=== PATIENT | male | born 1960 | race Caucasian/White ===

== ENCOUNTER → 2024-02-02 15:58 | Outpatient (REF) | payer BC, SELFPAY ==
[2024-02-02 16:46] LABS: Blood Urea Nitrogen 23 mg/dl (9-20); Calcium 8.3 mg/dl (8.4-10.2); Carbon Dioxide 20 mmol/L (22-30); Chloride 108 mmol/L (98-107); Glucose 144 mg/dl (70-99); HDL Cholesterol 32 mg/dl; LDL Cholesterol, Calculated 36 mg/dl; Potassium 4.4 mmol/L (3.5-5.1); Sodium 134 mmol/L (135-145); Total Cholesterol 101 mg/dl (50-199); Triglyceride 167 mg/dl (10-149); Very Low Density Lipoprotein 33 mg/dl (0-30); eGFR 56.13
[2024-02-03 08:54] LABS: Glycohemoglobin (HgbA1c) 6.7 % (4.0-5.6)
== END ==
LOC: OLABWPC 15:58
PROVIDERS: ATTENDING PHYSICIAN Internal Medicine Cardiovascular Disease; FAMILY PHYSICIAN Internal Medicine
DX: E11.9 Type 2 diabetes mellitus without complications (principal); I10 Essential (primary) hypertension; Z86.73 Personal history of transient ischemic attack (TIA), and cerebral infarction without residual deficits; E78.2 Mixed hyperlipidemia; E66.01 Morbid (severe) obesity due to excess calories
CPT/HCPCS: 36415; 80048; 80061; 83036

== ENCOUNTER → 2024-03-10 09:09 | Outpatient (REF) | payer MEDICARE, OTHER, SELFPAY | LOC: PAVMRI 09:09 | PROVIDERS: ATTENDING PHYSICIAN Anesthesiology Pain Medicine; FAMILY PHYSICIAN Internal Medicine | DX: M54.16 Radiculopathy, lumbar region (principal) | CPT/HCPCS: 70030; 72148 ==

== ENCOUNTER → 2024-03-27 10:15 | Outpatient (REF) | payer MEDICARE, OTHER, SELFPAY ==
[2024-03-27 10:52] LABS: % Basophils 0.5 % (0-2); % Eosinophils 2.9 % (0-6); % Immature Granulocytes 0.6 % (0-0.5); % Monocytes 10.5 % (1.7-9.3); % Neutrophils 64.5 % (42.2-75.2); Absolute Eosinophils 0.2 10^3/uL (0-0.7); Absolute Lymphocytes 1.4 10^3/uL (1.2-3.4); Absolute Monocytes 0.7 10^3/uL (0.1-0.6); Absolute Neutrophils 4.2 10^3/uL (1.4-6.5); Hematocrit 43.7 % (39.0-52.0); Hemoglobin 14.6 g/dL (13.0-18.0); Mean Corp Hgb Conc. 33.4 g/dL (33.0-37.0); Mean Corpuscular Hgb 32.7 pg (27.0-31.0); Mean Platelet Volume 9.4 fL (7.4-10.4); Nucleated Red Blood Cells % 0 % (-); Platelet Count 201 10^3/uL (130-400); Red Blood Cell Count 4.46 10^6/uL (4.70-6.10); Red Cell Dist. Width 13.6 % (11.5-14.5); White Blood Cell Count 6.6 10^3/uL (4.8-10.8)
[2024-03-27 11:38] LABS: ALT (SGPT) 36 U/L (0-50); AST (SGOT) 27 U/L (17-59); Albumin 3.7 g/dl (3.5-5.0); Alkaline Phosphatase 131 U/L (38-126); Blood Urea Nitrogen 22 mg/dl (9-20); Calcium 9.4 mg/dl (8.4-10.2); Carbon Dioxide 23 mmol/L (22-30); Chloride 106 mmol/L (98-107); Glucose 118 mg/dl (70-99); HDL Cholesterol 34 mg/dl; LDL Cholesterol, Calculated 21 mg/dl; Potassium 4.9 mmol/L (3.5-5.1); Sodium 136 mmol/L (135-145); Total Bilirubin 0.5 mg/dl (0.2-1.3); Total Cholesterol 101 mg/dl (50-199); Total Protein 6.2 g/dl (6.3-8.2); Triglyceride 233 mg/dl (10-149); Very Low Density Lipoprotein 46 mg/dl (0-30); eGFR > 60.00
[2024-03-27 12:05] LABS: TSH Reflex To Free T4 2.17 uIU/ml (0.47-4.68)
[2024-03-27 12:51] LABS: Glycohemoglobin (HgbA1c) 6.4 % (4.0-5.6)
== END ==
LOC: OLABWPC 10:15
PROVIDERS: ATTENDING PHYSICIAN Internal Medicine
DX: E11.9 Type 2 diabetes mellitus without complications (principal); I10 Essential (primary) hypertension; E66.01 Morbid (severe) obesity due to excess calories; E78.2 Mixed hyperlipidemia; I25.10 Atherosclerotic heart disease of native coronary artery without angina pectoris
CPT/HCPCS: 36415; 80053; 80061; 83036; 84443; 85025

== ENCOUNTER → 2024-08-11 09:39 | Outpatient (REF) | payer MEDICARE, OTHER, SELFPAY | LOC: RAD 09:39 | PROVIDERS: ATTENDING PHYSICIAN Nurse Practitioner Family | DX: M79.89 Other specified soft tissue disorders (principal); I87.2 Venous insufficiency (chronic) (peripheral) | CPT/HCPCS: 93971 ==

== ENCOUNTER → 2024-09-25 10:00 | Outpatient (REF) | payer MEDICARE, OTHER, SELFPAY ==
[2024-09-25 11:01] LABS: % Basophils 0.8 % (0-2); % Eosinophils 5.8 % (0-6); % Immature Granulocytes 0.4 % (0-0.5); % Lymphocytes 25.4 % (20.5-51.1); % Monocytes 10.7 % (1.7-9.3); % Neutrophils 56.9 % (42.2-75.2); Absolute Eosinophils 0.3 10^3/uL (0-0.7); Absolute Lymphocytes 1.4 10^3/uL (1.2-3.4); Absolute Monocytes 0.6 10^3/uL (0.1-0.6); Hematocrit 42.1 % (39.0-52.0); Hemoglobin 14.2 g/dL (13.0-18.0); Mean Corp Hgb Conc. 33.7 g/dL (33.0-37.0); Mean Corpuscular Hgb 33.6 pg (27.0-31.0); Mean Corpuscular Volume 99.8 fL (80.0-94.0); Mean Platelet Volume 9.8 fL (7.4-10.4); Nucleated Red Blood Cells % 0 % (-); Platelet Count 198 10^3/uL (130-400); Red Blood Cell Count 4.22 10^6/uL (4.70-6.10); Red Cell Dist. Width 13.4 % (11.5-14.5); White Blood Cell Count 5.3 10^3/uL (4.8-10.8)
[2024-09-25 11:54] LABS: TSH Reflex To Free T4 2.94 uIU/ml (0.47-4.68)
[2024-09-25 11:56] LABS: Glycohemoglobin (HgbA1c) 6.5 % (4.0-5.6)
[2024-09-25 11:57] LABS: HDL Cholesterol 33 mg/dl; LDL Cholesterol, Calculated 49 mg/dl; Total Cholesterol 115 mg/dl (50-199); Triglyceride 166 mg/dl (10-149); Very Low Density Lipoprotein 33 mg/dl (0-30)
== END ==
LOC: OLABWPC 10:00
PROVIDERS: ATTENDING PHYSICIAN Internal Medicine
DX: E11.9 Type 2 diabetes mellitus without complications (principal); I10 Essential (primary) hypertension; E66.01 Morbid (severe) obesity due to excess calories; E78.2 Mixed hyperlipidemia; I25.10 Atherosclerotic heart disease of native coronary artery without angina pectoris
CPT/HCPCS: 36415; 80061; 83036; 84443; 85025

== ENCOUNTER → 2025-03-23 09:40 | Outpatient (REF) | payer MEDICARE, OTHER, SELFPAY ==
[2025-03-23 11:08] LABS: % Basophils 0.9 % (0-2); % Eosinophils 3.6 % (0-6); % Immature Granulocytes 0.3 % (0-0.5); % Monocytes 9.1 % (1.7-9.3); % Neutrophils 66.1 % (42.2-75.2); Absolute Basophils 0.1 10^3/uL (0-0.2); Absolute Eosinophils 0.2 10^3/uL (0-0.7); Absolute Lymphocytes 1.2 10^3/uL (1.2-3.4); Absolute Monocytes 0.5 10^3/uL (0.1-0.6); Absolute Neutrophils 3.8 10^3/uL (1.4-6.5); Hematocrit 39.6 % (39.0-52.0); Hemoglobin 13.2 g/dL (13.0-18.0); Mean Corp Hgb Conc. 33.3 g/dL (33.0-37.0); Mean Corpuscular Hgb 32.8 pg (27.0-31.0); Mean Corpuscular Volume 98.3 fL (80.0-94.0); Mean Platelet Volume 10.1 fL (7.4-10.4); Nucleated Red Blood Cells % 0 % (-); Platelet Count 189 10^3/uL (130-400); Red Blood Cell Count 4.03 10^6/uL (4.70-6.10); Red Cell Dist. Width 13.2 % (11.5-14.5); White Blood Cell Count 5.8 10^3/uL (4.8-10.8)
[2025-03-23 11:56] LABS: Glycohemoglobin (HgbA1c) 6.2 % (4.0-5.6)
[2025-03-23 13:20] LABS: ALT (SGPT) 20 U/L (0-50); AST (SGOT) 21 U/L (17-59); Albumin 3.8 g/dl (3.5-5.0); Alkaline Phosphatase 97 U/L (38-126); Blood Urea Nitrogen 27 mg/dl (9-20); Carbon Dioxide 20 mmol/L (22-30); Chloride 106 mmol/L (98-107); Glucose 86 mg/dl (70-99); HDL Cholesterol 29 mg/dl; LDL Cholesterol, Calculated 53 mg/dl; Potassium 5.1 mmol/L (3.5-5.1); Sodium 136 mmol/L (135-145); Total Bilirubin 0.6 mg/dl (0.2-1.3); Total Cholesterol 116 mg/dl (50-199); Triglyceride 170 mg/dl (10-149); Very Low Density Lipoprotein 34 mg/dl (0-30); eGFR 51.35
== END ==
LOC: OLABWPC 09:40
PROVIDERS: ATTENDING PHYSICIAN Family Medicine
DX: E11.22 Type 2 diabetes mellitus with diabetic chronic kidney disease (principal); E78.2 Mixed hyperlipidemia; I10 Essential (primary) hypertension
CPT/HCPCS: 36415; 80053; 80061; 83036; 85025

== ENCOUNTER → 2025-07-13 10:39 | Outpatient (REF) | payer MEDICARE, OTHER, SELFPAY ==
[2025-07-13 10:58] LABS: Hematocrit 41.0 % (39.0-52.0); Hemoglobin 13.5 g/dL (13.0-18.0); Mean Corp Hgb Conc. 32.9 g/dL (33.0-37.0); Mean Corpuscular Volume 98.1 fL (80.0-94.0); Nucleated Red Blood Cells % 0 % (-); Platelet Count 202 10^3/uL (130-400); Red Cell Dist. Width 12.5 % (11.5-14.5)
[2025-07-13 11:20] LABS: ALT (SGPT) 19 U/L (0-50); AST (SGOT) 18 U/L (17-59); Albumin 3.9 g/dl (3.5-5.0); Alkaline Phosphatase 89 U/L (38-126); Blood Urea Nitrogen 36 mg/dl (9-20); Calcium 9.3 mg/dl (8.4-10.2); Carbon Dioxide 21 mmol/L (22-30); Chloride 108 mmol/L (98-107); Glucose 80 mg/dl (70-99); HDL Cholesterol 27 mg/dl; LDL Cholesterol, Calculated 16 mg/dl; Potassium 5.0 mmol/L (3.5-5.1); Sodium 136 mmol/L (135-145); Total Protein 6.1 g/dl (6.3-8.2); Very Low Density Lipoprotein 38 mg/dl (0-30); eGFR 44.18
[2025-07-13 11:44] LABS: Glycohemoglobin (HgbA1c) 5.8 % (4.0-5.6)
== END ==
LOC: OLABWPC 10:39
PROVIDERS: ATTENDING PHYSICIAN Family Medicine
DX: E78.2 Mixed hyperlipidemia (principal); E11.9 Type 2 diabetes mellitus without complications; I10 Essential (primary) hypertension
CPT/HCPCS: 36415; 80053; 80061; 83036; 85025

== ENCOUNTER 2025-08-11 11:07 | Inpatient (IN) | payer MEDICARE, OTHER, SELFPAY ==
[2025-08-11] VITALS (19 sets, daily range): BP systolic 103–160; BP diastolic 59–123; BMI 31.3
--- NOTE | 2025-08-11 08:14 | EDRN ---
Jerry MILLAN in room w/pt.
[2025-08-11 08:22] LABS: Hematocrit 44.0 % (39.0-52.0); Hemoglobin 14.3 g/dL (13.0-18.0); Mean Corp Hgb Conc. 32.5 g/dL (33.0-37.0); Mean Corpuscular Volume 97.3 fL (80.0-94.0); Nucleated Red Blood Cells % 0 % (-); Platelet Count 258 10^3/uL (130-400); Red Cell Dist. Width 12.2 % (11.5-14.5)
[2025-08-11] MEDS: NSS 1000 IV ×2 (08:22→10:05)
[2025-08-11] MEDS: ZOFRAN 4 MG IV (08:38)
[2025-08-11 08:47] LABS: Blood Urea Nitrogen 97 mg/dl (9-20); Calcium 10.0 mg/dl (8.4-10.2); Carbon Dioxide 7 mmol/L (22-30); Chloride 112 mmol/L (98-107); Estimated Creatinine Clearance 23 ml/min; Glucose 132 mg/dl (70-99); Lipase 950 U/L (23-300); Sodium 131 mmol/L (135-145); eGFR 17.38
[2025-08-11 08:54] LABS: Troponin I < 0.012 ng/ml
--- NOTE | 2025-08-11 09:00 | ED.GENMED ---
History of Present Illness
<Lori Benites PA-C - Last Filed: 08/11/25 13:59>
General
Chief Complaint: Abdominal Symptoms
Source: patient
Exam Limitations: none
Time Seen by Provider: 08/11/25 08:01
Nursing documentation reviewed up to this point in time: agreed with
History of Present Illness
History of Present Illness:
SEE mdm
Past History
<YAZAN Cardenas Last Filed: 08/11/25 13:59>
Past History
ED Past Medical History: CAD, HTN, Hypercholesterolemia and NIDDM
Social History
Tobacco: Non-smoker
Alcohol: None
Review of Systems
<YAZAN Cardenas Last Filed: 08/11/25 13:59>
Review of Systems
Allergies reviewed?: Yes
All Other Systems: Not applicable
Phy Exam
<Lori Benites PA-C - Last Filed: 08/11/25 13:59>
Physical Exam
Physical Exam:
GENERAL: Alert , in no apparent distress
EYE: pupils equal and reactive
NECK: Supple
ENT: o/p clr, VERY DRY
CARDIAC: Regular rate and rhythm .
LUNGS: Clear breath sounds bilaterally, no acute respiratory distress, no wheezes/rales/rhonchi
ABDOMEN: Soft, without focal tenderness, no r/g, no cvat, normal bowel sounds
NEUROLOGICAL: Alert and oriented, WEANKESS LLE, mild LUE
SKIN: Warm and dry, skin intact.
MUSCULOSKELETAL: No edema, well perfused. neg ricky's sign
PSYCH: Normal and appropriate interaction.
Course
<YAZAN Cardenas Last Filed: 08/11/25 13:59>
Orders/Labs/Results
Orders:
Orders
08/11/25 Breakfast
Potassium, 2 Gram
At Your Request: Full Participation
Low Potassium: 1800 scottie/15 CHO Diabetic
08/11/25 08:05
Electrocardiogram (*1) Urgent
Reason for Study: Chest Pain
Cardiac Monitoring- Treatment ONCE
EKG- Treatment ONCE
IV Insert/Care/Rem.- Treatment PRN
08/11/25 08:13
Basic Metabolic Panel Urgent
Complete Blood Count/With Diff Urgent
Lipase Urgent
Troponin I Urgent
08/11/25 08:19
0.9% Sodium Chloride 1000 ml [Nss] 1,000 ml IV BOLUS
Ondansetron Injectable [Zofran] 4 mg IV NOW STA
08/11/25 08:50
CT Abd/pel Without Iv Or Oral Urgent
Comment:
Reason For Exam: ARF, vomiting, diarrhea
08/11/25 09:01
Comprehensive Metabolic Panel Urgent
Venous Blood Gas Stat
%Oxygen/Room Air: 21
08/11/25 09:05
Lactic Acid Urgent
08/11/25 09:42
Calcium Gluconate 1 gram/100mL [Calcium Gluconate] 1 gram in 100 ml IV ONCE
08/11/25 09:43
Calcium Gluconate 1,000 mg IV NOW STA
08/11/25 09:56
US Abdomen Limited Urgent
Reason For Exam: vomiting, gallstones
08/11/25 10:05
0.9% Sodium Chloride 500 ml [Nss] 1,000 ml IV BOLUS
08/11/25 10:10
CR Chest Portable - 1 View Urgent
Comment:
Reason For Exam: achalasia,
Reason Study Needs to be Portable: Patient Unstable
08/11/25 10:12
Dextrose 50%-Water [Dextrose 50% Syringe] 12.5 grams IV [id number] PRN
Dextrose 50%-Water [Dextrose 50% Syringe] 25 grams IV NOW STA
Insulin Human Regular [Novolin R] 5 units IV NOW STA
Bedside Glucose PRE IV Insulin- HyperK+ NOW
08/11/25 10:13
Potassium Urgent
08/11/25 10:55
Admit/Transfer Patient As Directed
Co-Sign Provider:
Level of Care: Inpatient admission
Assign to:: ICU
Physician / Group: chu sexton
Diagnosis: Acute renal failure, hyperkalemia
Patient Condition: Fair
Reason for Hospitalization: Acute renal failure, hyperkalemia
Expected length of stay greater than two midnights?: Yes
ELOS- Estimated Length of Stay in days: 2
I certify the patient meets the requirements for IP care: Yes
Code Status As Directed
Resuscitation Status: Full Code
PRN Pain Medication Management As Directed
May give lesser potent ordered pain med per pt: Yes
preference::
Protocol:: Medication orders for pain may be administered in a
manner that supports deferring to patient preference
when the pt is:
- Requesting an ordered lesser potent pain medication.
Least to most potent pain medications are defined
as: acetaminophen < NSAID < tramadol < opioids
(morphine, oxycodone, hydromorphone).
- Requesting a lesser dose of the same medication IF
ORDERED.
- Requesting a less intrusive route of administration
if both routes are prescribed by the provider (PO <
IV).
08/11/25 11:42
Bedside Glucose POST IV Insulin- HyperK+ Q1HX2,Q2HX2
08/11/25 12:42
BMP [Basic Metabolic Panel] Routine
08/11/25 13:00
Bisacodyl [Dulcolax] 10 mg RECTAL [id number] PRN
Dextrose 50%-Water [Dextrose 50% Syringe] 12.5 grams IV [id number] PRN
Docusate W/Senna [Senokot-S] 1 tablet PO BIDPRN PRN
Glucagon [GlucaGen] 1 mg IM PRN PRN
Insulin Aspart Corrective Low [Novolog Flexpen-Low Resistance] See Protocol SC AC
Ipratropium/Albuterol Sulfate [Duoneb] 3 ml INH R Q4HPRN PRN
Ondansetron Injectable [Zofran] 4 mg IV Q6HPRN PRN
Polyethylene Glycol Powder [Miralax] 17 grams PO DAILYPRN PRN
08/11/25 13:00
NEPHROLOGY CONSULT Urgent
Consulting Provider: Devin Conde
Was physician already notified: Yes
Reason for consult: Acute renal failure, hyper-K
Urinalysis Reflex To Culture Urgent
Activity As Directed
Activity Level: With Assistance
Bedside Glucose Monitoring As Directed
Frequency: AC&HS
Additional Instructions:: Change to q6h if pt on TPN, tube feeding or not eating
Vital Signs As Directed
Frequency: Per unit guidelines
Ot Eval And Treat Routine
Pt Eval And Treat Routine
Activity Level: With Assistance
DX Deep Vein Thrombosis Video Routine
08/11/25 13:48
Acetaminophen [Tylenol] 650 mg PO Q4HPRN PRN
08/12/25 06:00
Basic Metabolic Panel IN AM
Complete Blood Count/No Diff IN AM
Glycohemoglobin (HgbA1c) IN AM
Magnesium IN AM
NT-proBNP IN AM
Abnormal Lab Results
08/11/25 08/11/25 08/11/25
08:13 09:01 10:13
RBC 4.52 L 10^6/uL
(4.70-6.10)
MCV 97.3 H fL
(80.0-94.0)
MCH 31.6 H pg
(27.0-31.0)
MCHC 32.5 L g/dL
(33.0-37.0)
Abs Immat Gran (auto) 0.1 H 10^3/uL
(0-0.05)
Absolute Neuts (auto) 8.5 H 10^3/uL
(1.4-6.5)
Absolute Lymphs (auto) 0.8 L 10^3/uL
(1.2-3.4)
Absolute Monos (auto) 1.1 H 10^3/uL
(0.1-0.6)
Neutrophils % 80.3 H %
(42.2-75.2)
Lymphocytes % 7.8 L %
(20.5-51.1)
Monocytes % 10.4 H %
(1.7-9.3)
VBG pH 7.12 L*
(7.32-7.43)
VBG HCO3 12.7 L mmol/L
(27)
Sodium 131 L mmol/L 132 L mmol/L
(135-145) (135-145)
Potassium 8.1 H* mmol/L 7.7 H* mmol/L
(3.5-5.1) (3.5-5.1)
Chloride 112 H mmol/L 113 H mmol/L
(98-107) (98-107)
Carbon Dioxide 7 L* mmol/L 9 L* mmol/L
(22-30) (22-30)
BUN 97 H mg/dl 94 H mg/dl
(9-20) (9-20)
Creatinine 3.7 H mg/dL 3.6 H mg/dL
(0.7-1.3) (0.7-1.3)
Glucose 132 H mg/dl 116 H mg/dl
(70-99) (70-99)
Lipase 950 H U/L
(23-300)
08/11/25 08:13
08/11/25 10:13
Vital Signs
Initial and Last Documented VS:
Initial Vital Signs
Pulse Resp BP
75 23 136/82
08/11/25 07:58 08/11/25 07:58 08/11/25 07:58
Last Documented Vital Signs
Temp Pulse Resp BP Pulse Ox
37.0 C 65 20 122/59 99
08/11/25 07:59 08/11/25 13:45 08/11/25 13:45 08/11/25 13:30 08/11/25 13:45
<Thao Kirby DO - Last Filed: 08/11/25 10:15>
Orders/Labs/Results
Orders:
Orders
08/11/25 Breakfast
Potassium, 2 Gram
At Your Request: Full Participation
Low Potassium: 1800 scottie/15 CHO Diabetic
08/11/25 08:05
Electrocardiogram (*1) Urgent
Reason for Study: Chest Pain
Cardiac Monitoring- Treatment ONCE
EKG- Treatment ONCE
IV Insert/Care/Rem.- Treatment PRN
08/11/25 08:13
Basic Metabolic Panel Urgent
Complete Blood Count/With Diff Urgent
Lipase Urgent
Troponin I Urgent
08/11/25 08:19
0.9% Sodium Chloride 1000 ml [Nss] 1,000 ml IV BOLUS
Ondansetron Injectable [Zofran] 4 mg IV NOW STA
08/11/25 08:50
CT Abd/pel Without Iv Or Oral Urgent
Comment:
Reason For Exam: ARF, vomiting, diarrhea
08/11/25 09:01
Comprehensive Metabolic Panel Urgent
Venous Blood Gas Stat
%Oxygen/Room Air: 21
08/11/25 09:05
Lactic Acid Urgent
08/11/25 09:42
Calcium Gluconate 1 gram/100mL [Calcium Gluconate] 1 gram in 100 ml IV ONCE
08/11/25 09:43
Calcium Gluconate 1,000 mg IV NOW STA
08/11/25 09:56
US Abdomen Limited Urgent
Reason For Exam: vomiting, gallstones
08/11/25 10:05
0.9% Sodium Chloride 500 ml [Nss] 1,000 ml IV BOLUS
08/11/25 10:10
CR Chest Portable - 1 View Urgent
Comment:
Reason For Exam: achalasia,
Reason Study Needs to be Portable: Patient Unstable
08/11/25 10:12
Dextrose 50%-Water [Dextrose 50% Syringe] 12.5 grams IV [id number] PRN
Dextrose 50%-Water [Dextrose 50% Syringe] 25 grams IV NOW STA
Insulin Human Regular [Novolin R] 5 units IV NOW STA
Bedside Glucose PRE IV Insulin- HyperK+ NOW
08/11/25 10:13
Potassium Urgent
08/11/25 10:55
Admit/Transfer Patient As Directed
Co-Sign Provider:
Level of Care: Inpatient admission
Assign to:: ICU
Physician / Group: chu sexton
Diagnosis: Acute renal failure, hyperkalemia
Patient Condition: Fair
Reason for Hospitalization: Acute renal failure, hyperkalemia
Expected length of stay greater than two midnights?: Yes
ELOS- Estimated Length of Stay in days: 2
I certify the patient meets the requirements for IP care: Yes
Code Status As Directed
Resuscitation Status: Full Code
PRN Pain Medication Management As Directed
May give lesser potent ordered pain med per pt: Yes
preference::
Protocol:: Medication orders for pain may be administered in a
manner that supports deferring to patient preference
when the pt is:
- Requesting an ordered lesser potent pain medication.
Least to most potent pain medications are defined
as: acetaminophen < NSAID < tramadol < opioids
(morphine, oxycodone, hydromorphone).
- Requesting a lesser dose of the same medication IF
ORDERED.
- Requesting a less intrusive route of administration
if both routes are prescribed by the provider (PO <
IV).
08/11/25 11:42
Bedside Glucose POST IV Insulin- HyperK+ Q1HX2,Q2HX2
08/11/25 12:42
BMP [Basic Metabolic Panel] Routine
08/11/25 13:00
Bisacodyl [Dulcolax] 10 mg RECTAL [id number] PRN
Dextrose 50%-Water [Dextrose 50% Syringe] 12.5 grams IV [id number] PRN
Docusate W/Senna [Senokot-S] 1 tablet PO BIDPRN PRN
Glucagon [GlucaGen] 1 mg IM PRN PRN
Insulin Aspart Corrective Low [Novolog Flexpen-Low Resistance] See Protocol SC AC
Ipratropium/Albuterol Sulfate [Duoneb] 3 ml INH R Q4HPRN PRN
Ondansetron Injectable [Zofran] 4 mg IV Q6HPRN PRN
Polyethylene Glycol Powder [Miralax] 17 grams PO DAILYPRN PRN
08/11/25 13:00
NEPHROLOGY CONSULT Urgent
Consulting Provider: Devin Conde
Was physician already notified: Yes
Reason for consult: Acute renal failure, hyper-K
Urinalysis Reflex To Culture Urgent
Activity As Directed
Activity Level: With Assistance
Bedside Glucose Monitoring As Directed
Frequency: AC&HS
Additional Instructions:: Change to q6h if pt on TPN, tube feeding or not eating
Vital Signs As Directed
Frequency: Per unit guidelines
Ot Eval And Treat Routine
Pt Eval And Treat Routine
Activity Level: With Assistance
DX Deep Vein Thrombosis Video Routine
08/11/25 13:48
Acetaminophen [Tylenol] 650 mg PO Q4HPRN PRN
08/12/25 06:00
Basic Metabolic Panel IN AM
Complete Blood Count/No Diff IN AM
Glycohemoglobin (HgbA1c) IN AM
Magnesium IN AM
NT-proBNP IN AM
Abnormal Lab Results
08/11/25 08/11/25 08/11/25
08:13 09:01 10:13
RBC 4.52 L 10^6/uL
(4.70-6.10)
MCV 97.3 H fL
(80.0-94.0)
MCH 31.6 H pg
(27.0-31.0)
MCHC 32.5 L g/dL
(33.0-37.0)
Abs Immat Gran (auto) 0.1 H 10^3/uL
(0-0.05)
Absolute Neuts (auto) 8.5 H 10^3/uL
(1.4-6.5)
Absolute Lymphs (auto) 0.8 L 10^3/uL
(1.2-3.4)
Absolute Monos (auto) 1.1 H 10^3/uL
(0.1-0.6)
Neutrophils % 80.3 H %
(42.2-75.2)
Lymphocytes % 7.8 L %
(20.5-51.1)
Monocytes % 10.4 H %
(1.7-9.3)
VBG pH 7.12 L*
(7.32-7.43)
VBG HCO3 12.7 L mmol/L
(22-27)
Sodium 131 L mmol/L 132 L mmol/L
(135-145) (135-145)
Potassium 8.1 H* mmol/L 7.7 H* mmol/L
(3.5-5.1) (3.5-5.1)
Chloride 112 H mmol/L 113 H mmol/L
(98-107) (98-107)
Carbon Dioxide 7 L* mmol/L 9 L* mmol/L
(22-30) (22-30)
BUN 97 H mg/dl 94 H mg/dl
(9-20) (9-20)
Creatinine 3.7 H mg/dL 3.6 H mg/dL
(0.7-1.3) (0.7-1.3)
Glucose 132 H mg/dl 116 H mg/dl
(70-99) (70-99)
Lipase 950 H U/L
(23-300)
08/11/25 08:13
08/11/25 10:13
Vital Signs
Initial and Last Documented VS:
Initial Vital Signs
Pulse Resp BP
75 23 136/82
08/11/25 07:58 08/11/25 07:58 08/11/25 07:58
Last Documented Vital Signs
Temp Pulse Resp BP Pulse Ox
37.0 C 65 20 122/59 99
08/11/25 07:59 08/11/25 13:45 08/11/25 13:45 08/11/25 13:30 08/11/25 13:45
<Lori Benites PA-C - Last Filed: 08/11/25 13:59>
MDM/Problems Addressed
Differential Diagnosis Includes:
SEE mdm
MDM/Problems Addressed:
Note:
CHIEF COMPLAINT(S)
Nausea, vomiting, and diarrhea for the past three weeks following a recent vaccination.
HISTORY OF PRESENT ILLNESS
The patient is a 64-year-old male with a history of stroke and diabetes, who presents with nausea, vomiting, and diarrhea that began three weeks ago after receiving a Moderna vaccination. He reports having little to eat or drink during this period
but has attempted to consume small amounts of Gatorade. He describes a greater volume of diarrhea compared to vomiting and denies the presence of abdominal pain. The patient mentions experiencing dizziness but does not report any fever. A history of
a past stroke and a previous esophageal procedure related to achalasia was noted. The patient is on medications for diabetes, including metformin.
PAST MEDICAL AND SURIGICAL HISTORY
- Stroke several years ago.
- Achalasia with prior esophageal dilation.
CHRONIC MEDICAL CONDITIONS SIGNIFICANTLY AFFECTING CARE
- Diabetes.
- History of achalasia.
- Cerebrovascular accident (stroke).
MEDICATIONS
- Metformin (for diabetes).
REVIEW OF SYSTEMS
- Gastrointestinal: Frequent diarrhea more prominent than vomiting.
- General: Dizziness present, but no reported fever.
PHYSICAL EXAM
- Vital signs reviewed on nursing notes.
PROBLEM LIST
Acute:
- Nausea, vomiting, and diarrhea post-vaccination.
- Dizziness possibly related to dehydration or other causes.
Chronic:
- Diabetes mellitus.
- History of esophageal achalasia.
- History of stroke.
PLAN
The patient will undergo a computed tomography scan and blood work. Intravenous fluids will be administered for hydration. Antiemetic medication will be given to manage nausea and vomiting. Differential diagnosis considerations include pancreatitis,
bowel obstruction, or other gastrointestinal pathology.
DIFFERENTIAL DIAGNOSIS
The Differential Diagnosis includes, in no particular order and is not limited to:
1. Viral gastroenteritis.
2. Medication side effects.
3. Pancreatitis.
4. Small bowel obstruction.
5. Large bowel obstruction.
6. Gastritis.
7. Peptic ulcer disease.
8. Diabetic gastroparesis.
9. Esophageal motility disorder.
10. Hypoglycemia secondary to diabetes treatment.
64 Y/O M
N/V/D X 3 WEEKS
STABLE VITALS
DRY
NONTENDER ABDOMEN
ARF, METABOLIC ACIDOSIS, HYPERKALEMIA
CT NO OBSTRUCTIVE UROPATHY
SUSPECT GI LOSSES/PRERENAL CAUSES
WILL TREAT THE HYPERK
ADMIT TO HOSPITALIST, CONSULTED NEPHROLOGY
Disposition:
SUMMARY OF ENCOUNTER
The patient, a 64-year-old male from a longterm, presented with three weeks of nausea, vomiting, and diarrhea following a Manjaro injection. He has experienced inconsistent tolerance of liquids and persistent vomiting with food. He reports no
significant abdominal pain but does experience confusion. On examination, vital signs were stable, the abdomen was soft and non-tender, but the mucous membranes were moderately dry. Laboratory results indicated severe electrolyte imbalances with
hyperkalemia, acute renal failure, and metabolic acidosis. A venous pH of 7.1 and a bicarbonate level of [address] scan without contrast ruled out obstructive uropathy as a cause for renal failure, pointing instead towards a pre-renal
etiology. The CT also revealed a distended gallbladder with stones, prompting the ordering of an ultrasound to evaluate for possible cholecystitis or cholelithiasis. Given the suspicion of hyperkalemia due to potential hemolysis, calcium, insulin,
and dextrose were administered.
DISPOSITION
Admitted to hospitalist, likely intensive care.
ASSESSMENT
The patient presents with acute renal failure likely of pre-renal origin, metabolic acidosis, and possible gallbladder pathology, all potentially connected with recent Manjaro injection.
EMERGENCY TREATMENTS ADMINISTERED
Intravenous fluids, calcium, insulin, and dextrose.
INDEPENDENT REVIEW OF LABS AND INTERPRETATION OF TESTS
- My independent review of electrolytes indicates hyperkalemia and metabolic acidosis with an anion gap of 12.
- My independent review of a venous blood gas shows a pH of 7.1 and a bicarbonate level of 7.
Radiology Results:
- My independent interpretation of the non-contrasted CT scan shows no obstructive uropathy but identifies a distended gallbladder with stones.
PATIENT EDUCATION AND COUNSELING
The patient was informed about the potential link between their symptoms and the recent Manjaro injection. An explanation was given about possible gallbladder issues and the need for further imaging and treatment.
FOLLOW-UP INSTRUCTIONS
The patient will be monitored closely under hospital admission with the likelihood of intensive care involvement.
MEDICATION RECONCILIATION
Administered calcium, insulin, and dextrose for treatment of hyperkalemia.
MEDICAL DECISION MAKING
- Number and Complexity of Problems Addressed: Chronic conditions affecting care include history of stroke, diabetes, and prior esophageal dilation. Differential diagnosis includes causes of renal failure and gastrointestinal symptoms such as viral
gastroenteritis, pancreatitis, bowel obstruction, gastritis, esophageal motility disorder, and diabetic gastroparesis.
- Data:
Category 1
- I reviewed the patients non-emergency department records, including a review of current laboratory results.
- My independent interpretation of a non-contrasted CT scan and clinical evaluation led to the decision to order an ultrasound for further assessment.
Category 3
- Discussion of management with attending and hospitalist regarding the patients condition and need for admission, likely intensive care.
-Risk:
Consideration of Admission/Observation: Escalation of care including admission/observation was considered given the complexity and risk of the patients presenting complaint, exam findings, and their underlying comorbidities. However, ultimately, I
feel the patient is safe for inpatient management with close monitoring. Reasoning: The work-up does not reveal any acute life/organ-threatening processes presently.
DIAGNOSIS
- Acute renal failure, likely pre-renal (N17.9)
- Metabolic acidosis (E87.2)
- Hyperkalemia (E87.5)
- Cholelithiasis (K80.20)
<Lori Benites PA-C - Last Filed: 08/11/25 13:59>
*Pulse Oximetry
SaO2: 96
Oxygen Mode of Delivery: Room air
Patient hypoxic: no (99)
<Thao Kirby DO - Last Filed: 08/11/25 10:15>
*Critical Care Note
Total Time (30-74mins, 75-104mins- exclusive of procedures): 65
comment:
The high probability of a clinically significant, sudden or life threatening deterioration of the renal and cardiac system(s) required my full and direct attention, intervention and personal management. The aggregate critical care time was 65
minutes. This time is in addition to time spent performing reported procedures but includes the following:
[x] Data Review and interpretation
[x] Patient assessment and monitoring of vital signs
[x] Documentation
[x] Medication orders and management
ED Attending Note
<Lori Benites PA-C - Last Filed: 08/11/25 13:59>
-
Portions of this chart may have been created with voice recognition software.� Occasional wrong word or��sound alike� substitutions may have occurred due to the inherent limitations of voice recognition software.
<Thao Kirby DO - Last Filed: 08/11/25 10:15>
ED Attending Note
Patient seen and examined by attending physician: Yes
I performed the substantive portion of visit, reviewed & personally made and approve the management plan that is documented in note by myself or AIDE.: Yes
I performed a history and physical exam of patient and discussed management with resident, I reviewed resident's note and agree with documented findings and plan of care.: Yes
ED Attending Note:
64-year-old male presenting from nursing facility for concern of confusion with nausea/vomiting/diarrhea for the past 3 weeks. Patient recently started on Mounjaro. Patient on arrival notes that he has been to tolerate anything by mouth secondary
to patient, also has baseline achalasia. No report of any fevers. Denies chest pain, cough, difficulty breathing. Patient's brother is at bedside.
Vital signs on arrival significant for mild tachypnea. Patient initially seen and evaluated by physician assistant family teacher with appropriate workup for concern of dehydration, likely medication induced from Mounjaro. On my examination, patient with dry
mucous membranes, however no focal systemic symptoms. Patient with unremarkable cardiac and respiratory exam. No tenderness to the abdomen. Laboratory analysis is grossly abnormal with a metabolic acidosis. Glucose is within normal limits
without concern for DKA. Lactate is within normal limits without concern for lactic acidosis. Profound [place], acidosis possibly from uremia. Patient getting IV fluids. Potassium also returned markedly elevated. Possible lab error, however given
value, will treat with calcium/dextrose/insulin. Will recheck potassium. Patient notes that he also takes potassium supplementation at baseline. No significant EKG changes. CT abdomen and pelvis obtained to ensure no acute intra-abdominal
process to contribute to patient's symptoms, negative. Plan for admission for dehydration, uremia, [place], hyperkalemia
Discharge Plan
Departure
Patient Disposition: Admit
Date of Disposition: 08/11/25
Time of Disposition: 09:56
Admit to: IMU
Presentation/result/management discussed w/ accepting MD/DO: Hospitalist
Condition: Fair
Covid-19: Not Applicable
Discharge Problem:
Acute renal failure, Dehydration, Vomiting, Hyperkalemia, Metabolic acidosis
Interventions
Interventions:
*Risk Screen - Suicide Last Done: 08/11/25 07:59
*General Assessment Last Done: 08/11/25 07:59
*Neglect/Abuse Screening Last Done: 08/11/25 07:59
*ED- Fall Risk Assessment Last Done: 08/11/25 08:48
*ED COVID-19 Vaccine History Last Done: 08/11/25 07:59
*Nursing Disposition Last Done: 08/11/25 12:50
HI-Pyytnm-Askjlhxrao Assessment Last Done: 08/11/25 08:45
Discharge Date and Time
Discharge Date/Time: 08/11/25 12:50
--- NOTE | 2025-08-11 09:08 | EDRN ---
James MILLAN in room w/ pt at this time.
--- NOTE | 2025-08-11 09:09 | EDRN ---
Chemistry tube hemolyzed so was reordered w/ VBG and Lactic ordered as well. Labs drawn and sent to lab. Lab called that VBG drawn and sent.
[2025-08-11 09:17] LABS: Venous Blood Gas B.E. -16.0 mmol/L (-4 to +4); Venous Blood Gas O2 Sat % 74.9 %
[2025-08-11 09:20] LABS: Venous Blood Gas O2 Therapy 21
[2025-08-11 09:41] LABS: ALT (SGPT) 17 U/L (0-50); AST (SGOT) 21 U/L (17-59); Albumin 3.9 g/dl (3.5-5.0); Alkaline Phosphatase 112 U/L (38-126); Blood Urea Nitrogen 94 mg/dl (9-20); Calcium 9.7 mg/dl (8.4-10.2); Carbon Dioxide 9 mmol/L (22-30); Chloride 113 mmol/L (98-107); Estimated Creatinine Clearance 23 ml/min; Glucose 116 mg/dl (70-99); Potassium 8.1 mmol/L (3.5-5.1); Sodium 132 mmol/L (135-145); Total Protein 6.7 g/dl (6.3-8.2); eGFR 17.96
--- NOTE | 2025-08-11 09:42 | EDRN ---
Pt attempted to void but was unable.
--- NOTE | 2025-08-11 09:57 | EDRN ---
Dr. Kirby in room w/ pt at this time.
[2025-08-11] MEDS: CALCIUM GLUCONATE 1000 MG IV (09:59)
[2025-08-11 10:31] LABS: Potassium 7.7 mmol/L (3.5-5.1)
--- NOTE | 2025-08-11 10:32 | EDRN ---
Portable xray being done at stretcher side.
[2025-08-11] MEDS: NOVOLIN R 5 UNITS IV ×2 (10:40→17:11)
[2025-08-11] MEDS: DEXTROSE 50% SYRINGE 25 GRAMS IV ×2 (10:40→17:11)
--- NOTE | 2025-08-11 10:40 | EDRN ---
Hospitalist Dr. Bro in room w/ pt at this time.
--- NOTE | 2025-08-11 11:01 | HPS.HSE ---
Family Physician
-
Family Physician: Tara French MD
Chief Complaint
-
Nausea, vomiting, diarrhea
History of Present Illness
Patient is 64 years old with a history of ksj-tteffga-zzrdjwfcj diabetes mellitus, CVA, osteoarthritis, sleep apnea, squamous cell carcinoma hypertension, hyperlipidemia, depression who came to the ER today with persistent nausea, vomiting, diarrhea
for last 3 weeks after receiving Mounjaro injection.
Patient received a Mounjaro injection 3 weeks ago and afterward he was experience daily nausea, vomiting, diarrhea.
Patient denies any chest pain or shortness of breath, denies any abdominal pain, no recent fever or chills.
Upon presentation to the ER patient noted to have acute renal failure with significant acidosis, also potassium level was 8.1, repeat potassium 7.7.
Patient received dextrose/insulin, repeat potassium pending.
Patient will be admitted to the ICU
Medical History
Past Medical History
Past Medical History: Reports HTN, Hypercholesterolemia, NIDDM and Other
Additional Past Medical History:
Diagnosis Date Comment Source
Aplasia and hypoplasia of cementum
Arthritis lower back
Cataract
[place] [place]di[place] [place]
High cholesterol
HTN (hypertension)
Osteoarthritis Hip
Retinal detachment left surgery x 6 / Rt right �laser retinopexy
SCCA (squamous cell carcinoma) of skin scalp and face
Seasonal allergies
Sleep apnea uses CPAP
Past Surgical History: Reports Other
Additional Past Surgical History:
Procedure Laterality Date Comment Source
ESOPHAGUS SURGERY PROCEDURE dilation of �sphincter
HX VITRECTOMY multiple rd �sx x 6
TN TRABECULOPLASTY BY LASER SURGERY PRP and laser retinopexy
TN XCAPSL CTRC RMVL INSJ IO LENS PROSTH CPLX WO ECP Left left 2015
TN XCAPSL CTRC RMVL INSJ IO LENS PROSTH W/O ECP Right 11/18/2023 Procedure: CATARACT REMOVAL INSERTION OF LENS; �Surgeon: Yvonne Leonardo MD; �Location: [facility] OR; �Service: OPHTHAL
TOTAL HIP REPLACEMENT Right 04/21/2022 Procedure: TOTAL HIP ARTHROPLASTY; ACETABULAR AND PROXIMAL FEMORAL PROSTHETIC; �Surgeon: Xu Chand MD; �Location: [facility] OR; �Service: ORTHO
Social History
Tobacco: Non-smoker
Alcohol: None
Drug: None
Personal:
Living: Assisted Living
Family History
Family History: Not pertinent
Allergies / Home Medications
Allergies reflects when Allergies were last updated in [facility].
Home Medications with original date entered in [facility]
Allergy/Medication List:
Allergies
Allergy/AdvReac Type Severity Reaction Status Date / Time
lactose Allergy Unknown Verified 08/11/25 11:15
pollen extracts Allergy nasal Verified 08/11/25 07:58
symptoms
Current outpatient prescriptions:
1) Atenolol 50 mg tablet, take 1 tablet by mouth daily.
2) Atorvastatin 40 mg tablet, take 1 tablet by mouth daily at bedtime.
3) Ciclopirox 8 % solution,
4) Clopidogrel 75 mg tablet, take 1 tablet by mouth daily.
5) Docusate sodium 100 mg capsule, take 1 capsule by mouth 2 times a day.
6) Dropsafe safety pen needles 31g x 5 mm,
7) Empagliflozin (jardiance po), take by mouth daily.
8) Fluoxetine 20 mg capsule, take 1 capsule by mouth daily.
9) Fluticasone 50 mcg/act nasal spray,
10) Hydralazine 100 mg tablet, take 1 tablet by mouth 2 times a day.
11) Losartan 100 mg tablet,
12) Metformin 500 mg tablet, take 1 tablet by mouth daily with breakfast.
13) Methocarbamol 500 mg tablet,
14) Novolog flexpen 100 unit/ml subcutaneous solution pen-injector,
15) [place]-3 acid ethyl esters 1 g capsule,
16) Onetouch ultra 2 w/device kit, use to check blood sugars twice daily as directed
17) Quickcue in vitro strip, use strips to check glucose twice daily
18) Potassium chloride 20 meq er tablet, take 1 tablet by mouth daily.
19) Spironolactone 50 mg tablet, take 1 tablet by mouth 2 times a day.
20) Tizanidine 4 mg tablet,
21) Tramadol 50 mg tablet, take 1 tablet by mouth.
Review of Systems
-
A 12 point ROS was completed and negative except as noted: Yes
Constitutional: Reports Weight Loss and Fatigue; Denies Fever, Weight Gain or Sleep Disturbance
EENT: Denies Tearing, Sore Throat, Mouth Pain, Mouth Swelling or Runny Nose
Respiratory: Denies Cough, Hemoptysis or Trouble Breathing
Cardiac: Denies Chest Pain, Diaphoresis, Palpitations or Syncope
Abdomen/GI: Reports Nausea, Vomiting and Diarrhea; Denies Abdominal Pain, Constipated, Bloody Stools or Black Stools
: Denies Dysuria, Frequency, Flank Pain, Incontinence, Difficulty Voiding, Urgency, Bleeding or Dark Urine
Musculoskeletal: Denies Joint Pain, Joint Swelling, Muscle Pain, Muscle Stiffness or Edema
Skin: Denies Itching or Rash
Neurological: Denies Dizzy, Headache, Weakness or Numbness
Endocrine: Denies Polyuria, Polydipsia or Temp Intolerance
Hematologic/Lymphatic: Denies Bleeding, Swollen Glands or Bruising
Psych: Reports Calm; Denies Depression, Anxiety or Panic Disorder
Physical Exam
Vital Signs
Vital Signs
Temp Pulse Resp BP Pulse Ox
98.6 F 67 26 143/103 96
08/11/25 07:59 08/11/25 09:00 08/11/25 09:00 08/11/25 09:00 08/11/25 09:02
Physical Exam
General: Well Developed, Appears in Distress and Good Appetite; No Pain, Chills or Sweats
HEENT: NormoCephalic, Moist mucous membranes, Atraumatic, Good Dentition, PERRLA, Nose Appears Normal and Ears Appear Normal
Respiratory: Clear
Cardiac: S1/S2 and Regular Rhythm
Breast: Deferred by me
GI: Soft, Non Tender, Non Distended and Normal Bowel Sounds
Genito-urinary: Deferred by me
Musculoskeletal: No Clubbing, No Cyanosis, Edema, Left Lower Extremity and Edema, Right Lower Extremity
Skin: Warm; No Rash, Jaundice, Ulcers, Lesions or Decubitus Ulcers
Neuro: Awake, Alert, Oriented, AO x 3, No Motor Deficits, Nonfocal/grossly intact and Cranial Nerves Intact
Hematologic/Lymphatic: No Lymphadenopathy
Psych: Calm
Laboratory Results
-
08/11/25 08:13
Laboratory Results
Lactic Acid 0.9 mmol/L (0.7-2.0) 08/11/25 09:05
Total Bilirubin 0.7 mg/dl (0.2-1.3) 08/11/25 09:01
AST 21 U/L (17-59) 08/11/25 09:01
ALT 17 U/L (0-50) 08/11/25 09:01
Alkaline Phosphatase 112 U/L (38-126) 08/11/25 09:01
Troponin I < 0.012 ng/ml 08/11/25 08:13
Lipase 950 U/L (23-300) H 08/11/25 08:13
Data Reviewed
-
Diagnostic Radiology: Report Reviewed by me
CT Scan: Report Reviewed by me
Medical Tests (Nuc Med, Echo, EKG etc): Report Reviewed by me
Lab Data: Labs Reviewed by me
Old Records: Reviewed
Impression/Plan
-
Impression:
Patient is 64 years old with a history of qwz-anvfnya-bsnvbbscd diabetes mellitus, CVA, osteoarthritis, sleep apnea, squamous cell carcinoma hypertension, hyperlipidemia, depression who came to the ER today with persistent nausea, vomiting, diarrhea
for last 3 weeks after receiving Mounjaro injection.
Patient received a Mounjaro injection 3 weeks ago and afterward he was experience daily nausea, vomiting, diarrhea.
Patient denies any chest pain or shortness of breath, denies any abdominal pain, no recent fever or chills.
Upon presentation to the ER patient noted to have acute renal failure with significant acidosis, also potassium level was 8.1, repeat potassium 7.7.
Patient received dextrose/insulin, repeat potassium pending.
Patient will be admitted to the ICU.
Assessment/plan:
Acute renal failure.
Severe hyperkalemia.
Acute metabolic acidosis.
Patient presented with 3 weeks history of nausea/vomiting/diarrhea after receiving Mounjaro.
Possible renal failure is prerenal azotemia secondary to volume depletion.
Obtain urinalysis
Patient will be admitted to the ICU.
Status post insulin/dextrose in the ER.
Start bicarb drip.
Repeat BMP.
Corporate Recruiter/nephrology consult.
If hyperkalemia/acidosis refractory patient may need dialysis, discussed with family.
Significant hyperkalemia.
Secondary to renal failure.
EKG shows no peaked T waves
Treatment as above
Patient on losartan/potassium supplements/spironolactone at home.Will hold
Low potassium diet.
Acute metabolic encephalopathy.
Improving
Pancreatitis, elevated lipase.
No abdominal pain
No tenderness on physical
Continue IV fluid
Concern of borderline prominent gallbladder seen on CT scan
Ultrasound abdomen pending
Again patient denies abdominal pain and there is no tenderness on physical exam.
History of hypertension.
Hold Losartan/spironolactone
Continue with atenolol/hydralazine once home meds are verified
History of diabetes mellitus
Hold home meds for now
Insulin sliding scale
Diabetic diet
Hemoglobin A1c
History of CVA.
Continue atorvastatin/Plavix
Hyperlipidemia.
Continue statin
Osteoarthritis.
Continue tramadol
CODE STATUS: Full code
DVT prophylaxis: Heparin
Diet: low K / diabetic diet
Family communication: Discussed with at bedside, brother
Disposition: Admit to the ICU
Total time spent on today's encounter was 75 minutes which included time spent in counseling the patient/family regarding diagnosis and treatment plan as listed above, goals of care, and symptom management. Case was discussed with nursing staff,
specialists, and care coordinators/case management. All labs and imaging personally reviewed by me. Remainder the time spent in detailed review of previous records, lab data, imaging, and other medical provider documentation.
[2025-08-11 11:33] LABS: Glucose - Point of Care 122 mg/dl (70-99)
[2025-08-11] MEDS: SODIUM BICARBONATE 1150 MEQ IV ×2 (11:38→20:17)
--- NOTE | 2025-08-11 12:36 | EDRN ---
Report called to Rachel HOLLOWAY in ICU at this time.
[2025-08-11 12:44] LABS: Glucose - Point of Care 101 mg/dl (70-99)
--- NOTE | 2025-08-11 13:12 | CON.INTV ---
Consultation
Consultation Request
Date/Time Consultation Requested: 08/11/2025
Date/Time Consultation Performed: 08/11/2025
Medical History
-
Chief Complaint: Nausea, vomiting and diarrhea
History of Present Illness:
Patient is a 63-year-old gentleman with history of diabetes, prior history of CVA who presented to emergency room for ongoing nausea, vomiting, diarrhea ongoing for almost 3 weeks after receiving Mounjaro and injection. Workup in the emergency room
was suggestive of acute renal failure along with severe hyperkalemia. Patient received urgent treatment with dextrose, insulin and bicarb and repeat potassium was marginally improved at 7.7. Subsequently was admitted to ICU and formal wear rental clerk
consultation was requested for further input.
Patient had a CT abdomen pelvis performed which is not suggestive of any obstructive uropathy.
Past Medical History
Past Medical History: Reports HTN, Hypercholesterolemia, NIDDM and Other
Additional Past Medical History:
Diagnosis Date Comment Source
Aplasia and hypoplasia of cementum
Arthritis lower back
Cataract
[place] [place]
DM (di[place] mellitus[place] [place] IDDM X 2019
High cholesterol
HTN (hypertension)
Osteoarthritis Hip
Retinal detachment left surgery x 6 / Rt right �laser retinopexy
SCCA (squamous cell carcinoma) of skin scalp and face
Seasonal allergies
Sleep apnea uses CPAP
Past Surgical History: Reports Other
Additional Past Surgical History:
Procedure Laterality Date Comment Source
ESOPHAGUS SURGERY PROCEDURE dilation of �sphincter
HX VITRECTOMY multiple rd �sx x 6
MT TRABECULOPLASTY BY LASER SURGERY PRP and laser retinopexy
MT XCAPSL CTR RMVL INSJ IO LENS PROSTH CPLX WO ECP Left left 2015
MT XCAPSL CTRC RMVL INSJ IO LENS PROSTH W/O ECP Right 11/18/2023 Procedure: CATARACT REMOVAL INSERTION OF LENS; �Surgeon: Yvonne Leonardo MD; �Location: [facility] OR; �Service: OPHTHAL
TOTAL HIP REPLACEMENT Right 04/21/2022 Procedure: TOTAL HIP ARTHROPLASTY; ACETABULAR AND PROXIMAL FEMORAL PROSTHETIC; �Surgeon: Xu Chand MD; �Location: [facility] OR; �Service: ORTHO
Social History
Tobacco: Non-smoker
Alcohol: None
Drug: None
Personal:
Living: Assisted Living
Family History
Family History: Not pertinent
Allergies / Home Medications
Allergies
Allergy/AdvReac Type Severity Reaction Status Date / Time
lactose Allergy Unknown Verified 08/11/25 11:15
pollen extracts Allergy nasal Verified 08/11/25 07:58
symptoms
Home Medications
�Medication �Instructions �Recorded �Confirmed �Last Taken �Type
[place] 3 Ethyl Esters 1 g PO DAILY 08/11/25 08/11/25 Unknown History
acetaminophen 325 mg tablet 650 mg PO Q8H PRN temp O>101.4 08/11/25 08/11/25 Unknown History
acetaminophen 500 mg tablet 1,000 mg PO Q8H Pain 08/11/25 08/11/25 Unknown History
(Tylenol Extra Strength)
atenolol 50 mg tablet 50 mg PO DAILY 08/11/25 08/11/25 Unknown History
atorvastatin 40 mg tablet 40 mg PO DAILY 08/11/25 08/11/25 Unknown History
ciclopirox 0.77 % topical cream 1 applic topical BID PRN toenail 08/11/25 08/11/25 Unknown History
fungal infection
clopidogrel 75 mg tablet 75 mg PO DAILY 08/11/25 08/11/25 Unknown History
dextromethorphan-guaifenesin 10 2 tab-cap PO Q6H PRN cough 08/11/25 08/11/25 Unknown History
mg-200 mg capsule (Coricidin HBP
Chest Congestion-Cough)
diclofenac sodium 1 % topical gel 4 g topical Q12H PRN mild back pain 08/11/25 08/11/25 Unknown History
empagliflozin 25 mg tablet 25 mg PO DAILY 08/11/25 08/11/25 Unknown History
(Jardiance)
fluticasone propionate 50 2 spray intranasal DAILY 08/11/25 08/11/25 Unknown History
mcg/actuation nasal
spray,suspension
hydralazine 100 mg tablet 100 mg PO BID 08/11/25 08/11/25 Unknown History
insulin aspart U-100 100 unit/mL 1 sliding scale dose SC DIRECTED 08/11/25 08/11/25 Unknown History
(3 mL) subcutaneous pen (Novolog
FlexPen U-100 Insulin aspart)
loperamide 2 mg tablet 2 mg PO Q8H PRN diarrhea 08/11/25 08/11/25 Unknown History
loratadine 10 mg tablet 10 mg PO DAILY 08/11/25 08/11/25 Unknown History
losartan 100 mg tablet 100 mg PO HS 08/11/25 08/11/25 Unknown History
melatonin 3 mg tablet 3 mg PO HS 08/11/25 08/11/25 Unknown History
metformin 500 mg tablet 500 mg PO BID 08/11/25 08/11/25 Unknown History
miconazole nitrate 2 % topical 1 spray topical DAILY PRN to toes 08/11/25 08/11/25 Unknown History
spray (Lotrimin AF) prn athlete's foot
multivitamin with minerals 1 tab PO DAILY 08/11/25 08/11/25 Unknown History
naproxen sodium 220 mg capsule 220 mg PO Q12H PRN pain 08/11/25 08/11/25 Unknown History
ondansetron HCl 8 mg tablet 8 mg PO Q8H PRN nausea 08/11/25 08/11/25 Unknown History
polyethylene glycol 3350 17 gram 17 g PO DAILY PRN constipation 08/11/25 08/11/25 Unknown History
oral powder packet (Miralax)
potassium chloride 20 mEq 20 meq PO DAILY 08/11/25 08/11/25 Unknown History
tablet,extended release
sennosides 8.6 mg tablet (senna) 17.2 mg PO DAILY PRN constipation 08/11/25 08/11/25 Unknown History
spironolactone 50 mg tablet 50 mg PO BID 08/11/25 08/11/25 Unknown History
tizanidine 4 mg tablet 4 mg PO Q8H PRN muscle spasms 08/11/25 08/11/25 Unknown History
tramadol 50 mg tablet 50 mg PO HS PRN pain 08/11/25 08/11/25 Unknown History
trazodone 50 mg tablet 50 mg PO HS PRN sleep/insomnia 08/11/25 08/11/25 Unknown History
Review of Systems
-
Hematologic/Lymphatic: Other (All 14 systems reviewed and negative except as stated above in the history of present illness.)
Vitals / Labs / Diagnostic Testing
Vital Signs
Temp Pulse Resp BP Pulse Ox
98.6 F 69 18 120/100 97
08/11/25 07:59 08/11/25 12:49 08/11/25 12:49 08/11/25 12:00 08/11/25 12:49
Lab Data
08/11/25 08:13
Diagnostic Testing:
Physical Exam
-
HEENT: Normocephalic (Dry appearing oral mucosa)
Cardiovascular: S1/S2
Respiratory: Clear and Non-Labored Respirations
GI: Soft and Non Distended
Neurology: Awake, Alert and Oriented
Skin: Warm
General: Comfortable
Assessment
-
#1. Acute kidney injury with severe hyperkalemia, with underlying chronic kidney disease
- Patient has baseline CKD and has been on Aldactone, potassium, losartan, Jardiance along with significant recent diarrhea, nausea and vomiting
- Symptoms of nausea could certainly be related to Mounjaro that patient recently started. CT without other abnormalities, right upper quadrant ultrasound with suboptimal visualization of gallbladder
- Suspect etiology is profound volume depletion with medications in addition contributing to [place] and hyperkalemia
- S/p emergent treatment in the ER with minimal improvement to 7.7, subsequently admitted to ICU
- Continue bicarb containing fluids, follow-up labs pending
- Hold losartan, Aldactone, Jardiance and metformin. Avoid NSAIDs also
- Nephrology service on case
- Hold all antihypertensive medications, avoid hypotension
#2. Metabolic acidosis.
- VBG 7.12/39. Also elevated lactate and significantly low bicarb consistent with metabolic acidosis in the setting of [place]
- S/p fluid resuscitation, continue bicarb containing fluids
- Serial VBG
- Also has been on metformin at home, continue to hold. Lactate only at 0.9.
Other medical diagnoses:
- ALBIN. On nightly CPAP, resume
- Hypertension. Hold all antihypertensives and avoid hypotension in the setting of [place]
- Hyperlipidemia
- Diabetes. Hold Jardiance and metformin in view of [place] and acidosis
- History of CVA. Continue Plavix and statins
- History of osteoarthritis. Avoid NSAIDs
DVT prophylaxis. Subcu heparin.
Critical Care time 59 mins -- The patient is admitted for acute critical illness for the treatment of vital organ failure and/or prevention of further life-threatening conditions. Total care includes time spent in review of history, physical exam,
medications, hemodynamic/ventilator parameters, laboratory data, imaging and discussion with house staff, pharmacy, respiratory therapy, service unit operator oil well, and nursing.
Data:
CXR 07/2025: No acute pulmonary process identified.
EKG, 07/2025. Normal sinus rhythm with left anterior fascicular block, QTc 396.
CT A/P 07/2025: No findings to suggest urinary tract calculus or dilatation bilaterally.
Borderline prominent gallbladder with minimal high attenuation density suggesting layering stones and/or sludge. No findings to suggest biliary tract dilatation. Consider ultrasound for more complete evaluation, if clinically warranted.
Sigmoid diverticulosis. No intestinal obstruction or free air.
Appendix normal in size without accompanying inflammatory changes.
Marked beam hardening artifact from right hip arthroplasty obscuring the soft tissues of the true pelvis.
[2025-08-11] MEDS: NOVOLOG FLEXPEN-LOW RESISTANCE SC ×2 (13:57→18:05)
[2025-08-11] MEDS: PLAVIX PO (14:34)
[2025-08-11 15:13] LABS: Urine Character Clear (Clear)
[2025-08-11 15:20] LABS: Blood Urea Nitrogen 87 mg/dl (9-20); Calcium 9.5 mg/dl (8.4-10.2); Carbon Dioxide 8 mmol/L (22-30); Chloride 114 mmol/L (98-107); Estimated Creatinine Clearance 28 ml/min; Glucose 125 mg/dl (70-99); Potassium 7.5 mmol/L (3.5-5.1); Sodium 131 mmol/L (135-145); eGFR 22.35
[2025-08-11 15:28] LABS: Urine Red Blood Cell 0-2 /HPF (0-2)
[2025-08-11 15:53] LABS: Glucose - Point of Care 108 mg/dl (70-99)
[2025-08-11] MEDS: LOKELMA 10 GRAM PO (16:23)
[2025-08-11] MEDS: SODIUM BICARBONATE 50 MEQ IV (16:24)
[2025-08-11] MEDS: LASIX 40 MG IV (16:24)
[2025-08-11] MEDS: HEPARIN 5000 UNITS SC ×2 (16:31→23:00)
--- NOTE | 2025-08-11 16:49 | W.CON.NEPH ---
Addendum entered and electronically signed by Devin Conde DO 08/11/25 16:57:
33 minutes critical care time
Original Note:
Consultation
-
Date/Time Consultation Requested: August 11, 2025 at 1 PM
Date/Time Consultation Performed: August 11, 2025 at 3 PM
Requesting Provider: Adali Galeana
Performing Provider: Dr. Conde
Reason for Consultation: Acute on chronic kidney disease and hyperkalemia
Medical History
-
Chief Complaint: Acute kidney injury
History of Present Illness:
64 years old with a history of wub-whsiyql-glrpiyrav diabetes mellitus, CVA, osteoarthritis, sleep apnea, squamous cell carcinoma hypertension, hyperlipidemia, depression who came to the ER today with persistent nausea, vomiting, diarrhea for last 3
weeks after receiving Mounjaro injection.
Renal consult for acute on chronic kidney disease and severe hyperkalemia
Past Medical History
History of uql-whfdffm-szoijlsqe diabetes mellitus, CVA, osteoarthritis, sleep apnea, squamous cell carcinoma hypertension, hyperlipidemia, depression
Social History
Tobacco: Non-Smoker
Alcohol: None
Family History
Family History: Not Pertinent
Allergies / Home Medications
Allergy/AdvReac Type Severity Reaction Status Date / Time
lactose Allergy Unknown Verified 08/11/25 11:15
pollen extracts Allergy nasal Verified 08/11/25 07:58
symptoms
�Medication �Instructions �Recorded �Confirmed �Type
[place] 3 Ethyl Esters 1 g PO DAILY 08/11/25 08/11/25 History
acetaminophen 325 mg tablet 650 mg PO Q8H PRN temp O>101.4 08/11/25 08/11/25 History
acetaminophen 500 mg tablet 1,000 mg PO Q8H Pain 08/11/25 08/11/25 History
(Tylenol Extra Strength)
atenolol 50 mg tablet 50 mg PO DAILY 08/11/25 08/11/25 History
atorvastatin 40 mg tablet 40 mg PO DAILY 08/11/25 08/11/25 History
ciclopirox 0.77 % topical cream 1 applic topical BID PRN toenail 08/11/25 08/11/25 History
fungal infection
clopidogrel 75 mg tablet 75 mg PO DAILY 08/11/25 08/11/25 History
dextromethorphan-guaifenesin 10 2 tab-cap PO Q6H PRN cough 08/11/25 08/11/25 History
mg-200 mg capsule (Coricidin HBP
Chest Congestion-Cough)
diclofenac sodium 1 % topical gel 4 g topical Q12H PRN mild back pain 08/11/25 08/11/25 History
empagliflozin 25 mg tablet 25 mg PO DAILY 08/11/25 08/11/25 History
(Jardiance)
fluticasone propionate 50 2 spray intranasal DAILY 08/11/25 08/11/25 History
mcg/actuation nasal
spray,suspension
hydralazine 100 mg tablet 100 mg PO BID 08/11/25 08/11/25 History
insulin aspart U-100 100 unit/mL 1 sliding scale dose SC DIRECTED 08/11/25 08/11/25 History
(3 mL) subcutaneous pen (Novolog
FlexPen U-100 Insulin aspart)
loperamide 2 mg tablet 2 mg PO Q8H PRN diarrhea 08/11/25 08/11/25 History
loratadine 10 mg tablet 10 mg PO DAILY 08/11/25 08/11/25 History
losartan 100 mg tablet 100 mg PO HS 08/11/25 08/11/25 History
melatonin 3 mg tablet 3 mg PO HS 08/11/25 08/11/25 History
metformin 500 mg tablet 500 mg PO BID 08/11/25 08/11/25 History
miconazole nitrate 2 % topical 1 spray topical DAILY PRN to toes 08/11/25 08/11/25 History
spray (Lotrimin AF) prn athlete's foot
multivitamin with minerals 1 tab PO DAILY 08/11/25 08/11/25 History
naproxen sodium 220 mg capsule 220 mg PO Q12H PRN pain 08/11/25 08/11/25 History
ondansetron HCl 8 mg tablet 8 mg PO Q8H PRN nausea 08/11/25 08/11/25 History
polyethylene glycol 3350 17 gram 17 g PO DAILY PRN constipation 08/11/25 08/11/25 History
oral powder packet (Miralax)
potassium chloride 20 mEq 20 meq PO DAILY 08/11/25 08/11/25 History
tablet,extended release
sennosides 8.6 mg tablet (senna) 17.2 mg PO DAILY PRN constipation 08/11/25 08/11/25 History
spironolactone 50 mg tablet 50 mg PO BID 08/11/25 08/11/25 History
tizanidine 4 mg tablet 4 mg PO Q8H PRN muscle spasms 08/11/25 08/11/25 History
tramadol 50 mg tablet 50 mg PO HS PRN pain 08/11/25 08/11/25 History
trazodone 50 mg tablet 50 mg PO HS PRN sleep/insomnia 08/11/25 08/11/25 History
Review of Systems
-
Diarrhea no chest pain or shortness of breath
All other systems: Negative unless noted
Physical Exam
Vital Signs
Vital Signs
Temp Pulse Resp BP Pulse Ox
98.6 F 65 20 122/59 98
08/11/25 07:59 08/11/25 13:45 08/11/25 13:45 08/11/25 13:30 08/11/25 15:27
Lab Results
WBC 10.6 10^3/uL (4.8-10.8) 08/11/25 08:13
RBC 4.52 10^6/uL (4.70-6.10) L 08/11/25 08:13
Hgb 14.3 g/dL (13.0-18.0) 08/11/25 08:13
Hct 44.0 % (39.0-52.0) 08/11/25 08:13
Plt Count 258 10^3/uL (130-400) 08/11/25 08:13
eGFR 22.35 08/11/25 14:22
Physical Exam
General no acute distress
HEENT no cephalic atraumatic extraocular muscle intact no scleral icterus no JVD neck supple
lungs clear to auscultation bilateral
heart regular S1-S2 positive
abdomen soft nontender positive bowel sounds
extremities no edema pulses present bilateral
Neurologically nonfocal alert and oriented x 3
Skin no lesions no abrasions no petechiae
Psych normal affect no bizarre behavior
Data Reviewed
-
Radiology: Image Personally Visualized and interpreted
CT Scan: Image Personally Visualized and interpreted
Ultrasound: Image Personally Visualized and interpreted
Labs: Labs Reviewed by me, Discussed with Physician, Discussed with Nurse and Discussed with Patient
Assessment/Plan
-
64 years old with a history of [id number]-myysaapkf diabetes mellitus, CVA, osteoarthritis, sleep apnea, squamous cell carcinoma hypertension, hyperlipidemia, depression who came to the ER today with persistent nausea, vomiting, diarrhea for last 3
weeks after receiving Mounjaro injection.
Renal consult for acute on chronic kidney disease and severe hyperkalemia
Impression
Acute on chronic kidney disease baseline creatinine 1.4-1.5
Severe hyperkalemia
Nausea vomiting likely medication induced
Diabetes
CVA
Metabolic acidosis
plan
Hold losartan, Aldactone, Jardiance and metformin.
Increase bicarbonate drip to 150 cc/h
Monitor urine output no indication for Castillo catheter at this time
Temporizing measures for hyperkalemia
No acute need for dialysis at this time
Serial chemistries ordered
Discussed with ICU team
Discussed with patient about dialysis in the event we are unable to control his potassium
[2025-08-11] MEDS: DESENEX/MITRAZOL/ZEASORB 1 APPLIC TOPICAL ×2 (17:12→19:44)
[2025-08-11] MEDS: CALCIUM GLUCONATE 100 IV (17:12)
[2025-08-11 18:15] LABS: Glucose - Point of Care 148 mg/dl (70-99)
--- NOTE | 2025-08-11 18:24 | PTCARENOTE ---
Pt admitted to ICU bed 3371 from ED at 1300. Pt alert and forgetful. Denies n/v. Sinus rhythm. SpO2 96-99% on room air. No BM since received to unit. Poor appetite. Yells out for help despite education litigation associate ly. Unable to use urinal
independently. Incontinent at times. Discussed with Special Events Coordinator. Will place smith for accurate I&Os to monitor CHARLOTTE. Difficulty getting blood draws and new IV. IV team notified and placed midline. All other assessments unchanged from
charting.
[2025-08-11 18:57] LABS: Glucose - Point of Care 132 mg/dl (70-99)
[2025-08-11 19:09] LABS: ALT (SGPT) 20 U/L (0-50); AST (SGOT) 24 U/L (17-59); Albumin 3.3 g/dl (3.5-5.0); Alkaline Phosphatase 93 U/L (38-126); Blood Urea Nitrogen 84 mg/dl (9-20); Calcium 9.7 mg/dl (8.4-10.2); Carbon Dioxide 15 mmol/L (22-30); Chloride 109 mmol/L (98-107); Estimated Creatinine Clearance 31 ml/min; Glucose 153 mg/dl (70-99); Potassium 5.6 mmol/L (3.5-5.1); Sodium 131 mmol/L (135-145); Total Protein 5.8 g/dl (6.3-8.2); eGFR 25.36
[2025-08-11] MEDS: ULTRAM 50 MG PO (19:43)
--- NOTE | 2025-08-11 20:03 | PTCARENOTE ---
Resumed care of pt laying in bed AAOx3, forgetful and confused at times. Pt yelling out at times. HR in the 70's in NSR on the monitor. POX 98% on RA. Lungs clear. + bowel, round obese abd. Pt had small liquid stool on bedpan. Kerrie care provided.
Castillo catheter in place for Acute Kidney injury. Pt reports burning and discomfort due to Castillo, PRN Dermoplast spray and PO pain medication administered as ordered. MASD noted, Desenex powder applied. Palpable peripheral pulses present. Pale skin.
B/L LE red brown discoloration. Scattered ecchymosis to B/L UE. Right Midline in place. Left hand int infusing D5W with 150MEQ bicarb @150ml/hr. Bed alarm in place for pt safety. Call ly in reach. Will continue to monitor.
[2025-08-11] MEDS: LIDOCAINE URO-JET 2% 1 SYRINGE TOPICAL (21:08)
[2025-08-11] MEDS: MELATONIN 3 MG PO (21:09)
[2025-08-11] MEDS: LIPITOR 40 MG PO (21:09)
[2025-08-11] MEDS: XANAX 0.5 MG PO (21:09)
[2025-08-11 21:19] LABS: Glucose - Point of Care 166 mg/dl (70-99)
[2025-08-11 22:08] LABS: Glucose - Point of Care 186 mg/dl (70-99)
[2025-08-11 22:26] LABS: Blood Urea Nitrogen 82 mg/dl (9-20); Calcium 9.3 mg/dl (8.4-10.2); Carbon Dioxide 17 mmol/L (22-30); Chloride 106 mmol/L (98-107); Estimated Creatinine Clearance 31 ml/min; Glucose 175 mg/dl (70-99); Potassium 5.3 mmol/L (3.5-5.1); Sodium 129 mmol/L (135-145); eGFR 25.36
[2025-08-11] MEDS: VALIUM INJECTION 5 MG IV (23:14)
--- NOTE | 2025-08-11 23:23 | PTCARENOTE ---
Pt continues to complain of urinary burning and penile discomfort due to smith catheter. Medications administered as ordered, see MAR. Pt inc of large amount of loose stool. Kerrie care provided. Barrier ointment/ antifungal applied to MASD. Pt
repositioned in bed per comfort. POX dropping while sleeping to 85% due to observed sleep apnea, 2 LO2 NC applied. POX now 96%. NO other changes in assessment noted at this time. Will continue to monitor.
[2025-08-12] VITALS (24 sets, daily range): BP systolic 104–163; BP diastolic 68–98; PULSE 2–69; O2SAT 97; BMI 35.2
[2025-08-12 03:08] LABS: Hematocrit 34.2 % (39.0-52.0); Hemoglobin 11.8 g/dL (13.0-18.0); Mean Corp Hgb Conc. 34.5 g/dL (33.0-37.0); Mean Corpuscular Volume 94.5 fL (80.0-94.0); Platelet Count 248 10^3/uL (130-400); Red Cell Dist. Width 11.9 % (11.5-14.5)
[2025-08-12 03:37] LABS: Blood Urea Nitrogen 79 mg/dl (9-20); Calcium 9.1 mg/dl (8.4-10.2); Carbon Dioxide 21 mmol/L (22-30); Chloride 105 mmol/L (98-107); Estimated Creatinine Clearance 38 ml/min; Glucose 175 mg/dl (70-99); Magnesium 1.4 mg/dl (1.6-2.3); Potassium 4.9 mmol/L (3.5-5.1); Sodium 132 mmol/L (135-145); eGFR 32.43
[2025-08-12] MEDS: SODIUM BICARBONATE IV (04:01)
[2025-08-12] MEDS: NSS 1000 IV ×2 (04:05→16:44)
[2025-08-12] MEDS: MAGNESIUM SULFATE 50 IV (04:17)
--- NOTE | 2025-08-12 04:30 | PTCARENOTE ---
Pt inc of loose stool. pt confused and attempting to clean self up with hands. Complete bed bath provided. Reality orientation provided. Pt continues to complain of burning due to smith catheter, spray administered as ordered. Pt instructed not to
keep touching catheter, infection prevention education provided. Bicarb gtt discontinued, NSS@100ml/hr now infusing along with Mag rider. No other changes in assessment noted at this time. Will continue to monitor.
--- NOTE | 2025-08-12 06:59 | W.PN.INTV ---
Today's Communication / Plan
Recommendations
- Continued improvement in creatinine and potassium
- Patient can be transferred to telemetry service
- Piano Professor service will sign off, please call as needed
Assessment
-
Patient is a 63-year-old gentleman with history of diabetes, prior history of CVA who presented to emergency room for ongoing nausea, vomiting, diarrhea ongoing for almost 3 weeks after receiving Mounjaro and injection. Workup in the emergency room
was suggestive of acute renal failure along with severe hyperkalemia. Patient received urgent treatment with dextrose, insulin and bicarb and repeat potassium was marginally improved at 7.7. Subsequently was admitted to ICU and engineering administrator
consultation was requested for further input.
Patient had a CT abdomen pelvis performed which is not suggestive of any obstructive uropathy.
08/12 overview: Current MAP 85, not requiring any pressor support. Saturating 99% on 4 L supplemental oxygen. Making urine, improving creatinine and potassium level.
#1. Acute kidney injury with severe hyperkalemia, with underlying chronic kidney disease
- Patient has baseline CKD and had been on Aldactone, potassium, losartan, Jardiance along with significant recent diarrhea, nausea and vomiting
- Symptoms of nausea could certainly be related to Mounjaro that patient recently started. CT without other abnormalities, right upper quadrant ultrasound with suboptimal visualization of gallbladder
- Suspect etiology is profound volume depletion with medications in addition contributing to CHARLOTTE and hyperkalemia
- S/p emergent treatment in the ER with minimal improvement to 7.7, subsequently admitted to ICU
- Continue bicarb containing fluids, follow-up labs improving
- Hold losartan, Aldactone, Jardiance and metformin. Avoid NSAIDs also
- Nephrology service on case
- Holding all antihypertensive medications, avoid hypotension
- Improving potassium and renal function
#2. Metabolic acidosis.
- VBG 7.1239. Also elevated lactate and significantly low bicarb consistent with metabolic acidosis in the setting of CHARLOTTE
- S/p fluid resuscitation, continue bicarb containing fluids
- Also has been on metformin at home, continue to hold. Lactate only at 0.9.
Other medical diagnoses:
- ALBIN. On nightly CPAP, resume
- Hypertension. Hold all antihypertensives and avoid hypotension in the setting of CHARLOTTE
- Hyperlipidemia
- Diabetes. Hold Jardiance and metformin in view of CHARLOTTE and acidosis
- History of CVA. Continue Plavix and statins
- History of osteoarthritis. Avoid NSAIDs
DVT prophylaxis. Subcu heparin.
Critical Care time 46 mins -- The patient is admitted for acute critical illness for the treatment of vital organ failure and/or prevention of further life-threatening conditions. Total care includes time spent in review of history, physical exam,
medications, hemodynamic/ventilator parameters, laboratory data, imaging and discussion with house staff, pharmacy, respiratory therapy, vp emerging media, and nursing.
Data:
CXR 07/2025: No acute pulmonary process identified.
EKG, 07/2025. Normal sinus rhythm with left anterior fascicular block, QTc 396.
CT A/P 07/2025: No findings to suggest urinary tract calculus or dilatation bilaterally.
Borderline prominent gallbladder with minimal high attenuation density suggesting layering stones and/or sludge. No findings to suggest biliary tract dilatation. Consider ultrasound for more complete evaluation, if clinically warranted.
Sigmoid diverticulosis. No intestinal obstruction or free air.
Appendix normal in size without accompanying inflammatory changes.
Marked beam hardening artifact from right hip arthroplasty obscuring the soft tissues of the true pelvis.
Subjective Dataa
Subjective Data
Date of Service:
Date of Service: August 12, 2025
Subjective:
Patient comfortably lying in bed in no acute distress.
Review of Systems
Genitourinary: Other (All 14 systems reviewed and negative except as stated above in the history of present illness.)
Objective Data
Data Reviewed
Vital Signs / I&O / Oxygen:
Vital Signs
Temp Pulse Resp BP Pulse Ox
98 F 63 18 117/80 99
08/12/25 03:38 08/12/25 06:15 08/12/25 06:15 08/12/25 06:00 08/12/25 06:15
Intake and Output
08/10/25 08/11/25 08/12/25
06:59 06:59 06:59
Intake Total 2500 / 2500
Output Total 1900 / 1900
Balance 600 / 600
SaO2 99
Nasal Cannula flow liters per 2
minute
Physical Exam
General: Comfortable
HEENT: Normocephalic
Cardiovascular: S1-S2
Respiratory: Clear
GI: Soft and Non Distended
Neurology: Awake and Alert
Skin: Warm
Labs/Micro/Reports
Lab Data
08/12/25 02:57
08/12/25 02:57
[2025-08-12] MEDS: NOVOLOG FLEXPEN-LOW RESISTANCE SC ×2 (08:49→16:30)
[2025-08-12] MEDS: PLAVIX 75 MG PO (08:50)
[2025-08-12] MEDS: CLARITIN 10 MG PO (08:50)
[2025-08-12] MEDS: DESENEX/MITRAZOL/ZEASORB 1 APPLIC TOPICAL ×2 (08:51→20:13)
[2025-08-12 09:01] LABS: Glucose - Point of Care 148 mg/dl (70-99)
[2025-08-12] MEDS: HEPARIN 5000 UNITS SC ×3 (09:23→23:05)
[2025-08-12] MEDS: MAGNESIUM SULFATE 102 GRAMS IV (10:39)
[2025-08-12] MEDS: TYLENOL 650 MG PO (11:34)
[2025-08-12 11:47] LABS: Glucose - Point of Care 188 mg/dl (70-99)
[2025-08-12] MEDS: NOVOLOG FLEXPEN-LOW RESISTANCE 1 UNITS SC (12:11)
[2025-08-12 12:17] LABS: Glucose - Point of Care 191 mg/dl (70-99)
--- NOTE | 2025-08-12 12:33 | W.PN.HOSP.TC ---
Today's Communication/Plan
-
Downgrade from the ICU.
Continue normal saline.
Assessment / Plan
Assessment / Plan
Impression:
Patient is 64 years old with a history of pzo-tirgjdg-nthrdicwk diabetes mellitus, CVA, osteoarthritis, sleep apnea, squamous cell carcinoma hypertension, hyperlipidemia, depression who came to the ER today with persistent nausea, vomiting, diarrhea
for last 3 weeks after receiving Mounjaro injection.
Patient received a Mounjaro injection 3 weeks ago and afterward he was experience daily nausea, vomiting, diarrhea.
Patient denies any chest pain or shortness of breath, denies any abdominal pain, no recent fever or chills.
Upon presentation to the ER patient noted to have acute renal failure with significant acidosis, also potassium level was 8.1, repeat potassium 7.7.
Patient received dextrose/insulin, repeat potassium pending.
Patient admitted to the ICU.
Kidney function and hyperkalemia improved.
Patient to be downgraded from the ICU.
Assessment/plan:
Acute renal failure on CKD stage 3a.
Severe hyperkalemia.
Acute metabolic acidosis.
Patient presented with 3 weeks history of nausea/vomiting/diarrhea after receiving Mounjaro.
Possible renal failure is prerenal azotemia secondary to volume depletion.
Patient admitted to the ICU.
Status post insulin/dextrose in the ER.
Started on bicarb drip.
Market Developer/nephrology consulted, appreciate input.
08/12
Kidney function improved and hyperkalemia resolved.
Patient to be downgraded from the ICU.
Castillo to be removed
switch IVF to normal saline
Significant hyperkalemia.
Continue to hold losartan/potassium supplements/spironolactone
Continue to monitor potassium
Low potassium diet.
Hyponatremia.
Improving.
Continue to monitor
Hypomagnesemia.
Replace and continue to monitor
Acute metabolic encephalopathy.
Improving
Pancreatitis, elevated lipase.
No abdominal pain
No tenderness on physical
Continue IV fluid
Concern of borderline prominent gallbladder seen on CT scan
Ultrasound abdomen pending
Again patient denies abdominal pain and there is no tenderness on physical exam.
History of hypertension.
Hold Losartan/spironolactone
we can resume atenolol/hydralazine once BP improves.
History of diabetes mellitus
Hold home meds for now
Insulin sliding scale
Diabetic diet
Hemoglobin A1c
History of CVA.
Continue atorvastatin/Plavix
Hyperlipidemia.
Continue statin
Osteoarthritis.
Continue tramadol
Abnormal labs: Hyponatremia, hypomagnesemia, mild anemia
Wounds: Groin redness, no pressure ulcer, applied antifungal powder
CODE STATUS: Full code
DVT prophylaxis: Heparin
Diet: low K / diabetic diet
Family communication: Discussed with at bedside, brother
Disposition: Downgrade from ICU
Total time spent on today's encounter was 74 minutes which included time spent in counseling the patient/family regarding diagnosis and treatment plan as listed above, goals of care, and symptom management. Case was discussed with nursing staff,
specialists, and care coordinators/case management. All labs and imaging personally reviewed by me. Remainder the time spent in detailed review of previous records, lab data, imaging, and other medical provider documentation.
Anticipated Discharge: > 48 hours
Subjective/Interval History
-
Date of Service: August 12, 2025
Patient seen and examined at bedside, sitting in the chair, had confusion overnight but otherwise denies any chest pain or shortness of breath, still having diarrhea.
Objective Data
-
Labs:
Laboratory Results
08/12/25
02:57
WBC 7.1
Hgb 11.8 L
Hct 34.2 L
Plt Count 248
Sodium 132 L
Potassium 4.9
Chloride 105
Carbon Dioxide 21 L
BUN 79 H
Creatinine 2.2 H
Glucose 175 H
Calcium 9.1
Vital Signs:
Vital Signs
Temp Pulse Resp BP Pulse Ox
98.4 F 75 21 133/98 100
08/12/25 11:16 08/12/25 09:30 08/12/25 09:30 08/12/25 09:12 08/12/25 08:15
I&O
08/11/25 08/12/25 08/13/25
06:59 06:59 06:59
Intake Total 2500 / 2600 700 / 700
Output Total 1900 / 1900 295 / 295
Balance 600 / 700 405 / 405
Physical Exam
-
General: Well Developed, Well Nourished, No Apparent Distress and Comfortable
HEENT: Normocephalic, Atraumatic, Moist Mucous Membranes, No Ptosis, PERRLA and Nose Appears Normal
Respiratory: Clear to Auscultation and Non Labored Respirations
Cardiac: Regular Rhythm and S1/S2
Breast: Deferred by me
GI: Soft, Nontender, Nondistended and Normal Bowel Sounds
Genito-urinary: No Costovertebral Tender
Musculoskeletal: No Clubbing, No Cyanosis and No Edema
Skin: Warm
Neuro: Awake, Alert, Oriented, AO x 3 and No Motor Deficits
Psych: Confused
Data Reviewed
-
Diagnostic Radiology: Image personally visualized and interpreted and Report Reviewed by me
CT Scan: Image personally visualized and interpreted and Report Reviewed by me
Ultrasound: Image personally visualized and interpreted and Report Reviewed by me
MRI: Image personally visualized and interpreted and Report Reviewed by me
Medical Tests (Nuc Med, Echo etc): Image personally visualized and interpreted and Report Reviewed by me
Labs: Labs Reviewed by me
Old Records: Reviewed
--- NOTE | 2025-08-12 12:53 | W.PN.NEPH.PH ---
Today's Communication / Plan
-
Normal saline
Discontinue Castillo catheter
Assessment/Plan
-
64 years old with a history of gws-spmscbt-jbjiylrsa diabetes mellitus, CVA, osteoarthritis, sleep apnea, squamous cell carcinoma hypertension, hyperlipidemia, depression who came to the ER today with persistent nausea, vomiting, diarrhea for last 3
weeks after receiving Mounjaro injection.
Renal consult for acute on chronic kidney disease and severe hyperkalemia
Impression
Acute on chronic kidney disease baseline creatinine 1.4-1.5
Severe hyperkalemia
Nausea vomiting likely medication induced
Diabetes
CVA
Metabolic acidosis
plan
Hold losartan, Aldactone, Jardiance and metformin.
Acidosis has improved to bicarbonate discontinued on normal saline
Castillo catheter in place nonoliguric
Renal function improving toward baseline
Serial chemistries ordered
Discussed with ICU team
Okay to remove Castillo catheter

32 minutes critical care time
-
-
Date of Service: August 12, 2025
CC / HPI / ROS
-
Chief Complaint:
Acute kidney injury
History of Present Illness:
Acute on chronic kidney disease secondary to GI losses with GLP-1 initiation
Review of Systems:
No chest pain or shortness of breath GI symptoms have subsided
Labs
-
Labs:
WBC 7.1 10^3/uL (4.8-10.8) 08/12/25 02:57
RBC 3.62 10^6/uL (4.70-6.10) L 08/12/25 02:57
Hgb 11.8 g/dL (13.0-18.0) L 08/12/25 02:57
Hct 34.2 % (39.0-52.0) L 08/12/25 02:57
Plt Count 248 10^3/uL (130-400) 08/12/25 02:57
Sodium 132 mmol/L (135-145) L 08/12/25 02:57
Potassium 4.9 mmol/L (3.5-5.1) 08/12/25 02:57
Chloride 105 mmol/L (98-107) 08/12/25 02:57
Carbon Dioxide 21 mmol/L (22-30) L 08/12/25 02:57
BUN 79 mg/dl (9-20) H 08/12/25 02:57
Creatinine 2.2 mg/dL (0.7-1.3) H 08/12/25 02:57
eGFR 32.43 08/12/25 02:57
Glucose 175 mg/dl (70-99) H 08/12/25 02:57
Calcium 9.1 mg/dl (8.4-10.2) 08/12/25 02:57
Wzi-L-Ppccimsirmb Pept 371 pg/ml 08/12/25 02:57
Albumin 3.3 g/dl (3.5-5.0) L 08/11/25 18:43
Physical Exam
-
Vital Signs:
Vital Signs
Temp Pulse Resp BP Pulse Ox
98.4 F 75 21 133/98 100
08/12/25 11:16 08/12/25 09:30 08/12/25 09:30 08/12/25 09:12 08/12/25 08:15
--- NOTE | 2025-08-12 13:30 | CM ---
CM reviewed chart, patient seen bedside, initial assessment completed.
Patient is 64 year old Male with a history of lvb-mbdfvex-wwqjtttwh diabetes mellitus, CVA, osteoarthritis, sleep apnea, squamous cell carcinoma hypertension, hyperlipidemia, depression who came to the ER today with persistent nausea, vomiting,
diarrhea for last 3 weeks after receiving Mounjaro injection.
Patient reports he resides at [facility]. Patient reports he uses a Rolling Walker for WC (for longer distances). Patient reports he is not currently receiving therapy at [facility], does go to the pool x2 a week. Patient confirms he has been to [facility] in past. PCP confirmed Tara French, Pharmacy [facility], confirms prescription coverage. Patient denies insecurities. CM discussed therapy recommendations of SNF, patient agreeable, referral placed in [facility] to [facility].
Call to [facility] to confirm patients PLOF, VM left.
Plan; [facility], pending bed availability, ref placed.
[2025-08-12 16:40] LABS: Glucose - Point of Care 137 mg/dl (70-99)
--- NOTE | 2025-08-12 17:50 | PTCARENOTE ---
Jonathan d/c'd. One large loose stool this shift. Appetite improved. Ate 100% of dinner. Report called. Will transfer to floor. Pt's contact, Amy, notified of room change.
--- NOTE | 2025-08-12 18:31 | PTCARENOTE ---
Received patient from IMU. Vitals stable, oriented to room and use of call ly.
[2025-08-12] MEDS: MELATONIN 3 MG PO (21:07)
[2025-08-12] MEDS: LIPITOR 40 MG PO (21:07)
[2025-08-12 21:32] LABS: Glucose - Point of Care 120 mg/dl (70-99)
[2025-08-13] VITALS (8 sets, daily range): BP systolic 113–161; BP diastolic 76–88; PULSE 2–68; BMI 35.5
[2025-08-13] MEDS: NSS 1000 IV (02:26)
[2025-08-13 05:25] LABS: Hematocrit 32.5 % (39.0-52.0); Hemoglobin 11.0 g/dL (13.0-18.0); Mean Corp Hgb Conc. 33.8 g/dL (33.0-37.0); Mean Corpuscular Volume 95.6 fL (80.0-94.0); Platelet Count 212 10^3/uL (130-400); Red Cell Dist. Width 11.9 % (11.5-14.5)
[2025-08-13 05:54] LABS: Blood Urea Nitrogen 52 mg/dl (9-20); Calcium 7.9 mg/dl (8.4-10.2); Carbon Dioxide 22 mmol/L (22-30); Chloride 107 mmol/L (98-107); Estimated Creatinine Clearance 59 ml/min; Glucose 117 mg/dl (70-99); Magnesium 2.1 mg/dl (1.6-2.3); Potassium 4.6 mmol/L (3.5-5.1); Sodium 133 mmol/L (135-145); eGFR 51.35
[2025-08-13] MEDS: HEPARIN 5000 UNITS SC (07:27)
[2025-08-13] MEDS: CLARITIN 10 MG PO (07:27)
[2025-08-13] MEDS: PLAVIX 75 MG PO (07:27)
[2025-08-13 07:29] LABS: Glucose - Point of Care 104 mg/dl (70-99)
[2025-08-13] MEDS: NOVOLOG FLEXPEN-LOW RESISTANCE SC ×3 (07:29→16:46)
[2025-08-13] MEDS: DESENEX/MITRAZOL/ZEASORB 1 APPLIC TOPICAL ×2 (07:29→21:01)
--- NOTE | 2025-08-13 09:04 | W.PN.HOSP.TC ---
Today's Communication/Plan
-
Discharge to short-term rehab tomorrow
Assessment / Plan
Assessment / Plan
HPI:
Patient is 64 years old with a history of xox-mdbloyt-trzcnubjl diabetes mellitus, CVA, osteoarthritis, sleep apnea, squamous cell carcinoma hypertension, hyperlipidemia, depression who came to the ER today with persistent nausea, vomiting, diarrhea
for last 3 weeks after receiving Mounjaro injection.
Patient received a Mounjaro injection 3 weeks ago and afterward he was experience daily nausea, vomiting, diarrhea.
Patient denies any chest pain or shortness of breath, denies any abdominal pain, no recent fever or chills.
Upon presentation to the ER patient noted to have acute renal failure with significant acidosis, also potassium level was 8.1, repeat potassium 7.7.
Assessment/plan:
Acute renal failure on CKD stage 3a.
Severe hyperkalemia.
Acute metabolic acidosis.
Patient presented with 3 weeks history of nausea/vomiting/diarrhea after receiving Mounjaro.
Possible renal failure is prerenal azotemia secondary to volume depletion.
Appreciate casting associate/nephrology input
Status post insulin/dextrose in the ER.
Started on bicarb drip.
Out of the ICU 08/12
Creatinine now back to baseline at 1.5
Nephrology recommends continuing to hold losartan, Aldactone, Jardiance and metformin
Monitor creatinine, plan for discharge to short-term rehab tomorrow
Significant hyperkalemia.
Continue to hold losartan/potassium supplements/spironolactone
Continue to monitor potassium
Low potassium diet.
Hyponatremia.
Improving.
Continue to monitor
Hypomagnesemia.
Repleted and resolved
Acute metabolic encephalopathy.
Improving
Pancreatitis, elevated lipase.
No abdominal pain
No tenderness on physical
Concern of borderline prominent gallbladder seen on CT scan
Abdominal ultrasound is limited due to gallbladder being obscured by transverse colon
Again patient denies abdominal pain and there is no tenderness on physical exam.
History of hypertension.
Hold Losartan/spironolactone
Continue atenolol/hydralazine once BP improves.
History of diabetes mellitus
Hemoglobin A1c 5.8. Hold home meds for now. Recommend permanently discontinue Mounjaro
Insulin sliding scale
Diabetic diet
History of CVA.
Continue atorvastatin/Plavix
Hyperlipidemia.
Continue statin
Osteoarthritis.
Continue tramadol
Obesity due to excess calories
Affects all aspects of care
Wounds: Groin redness, no pressure ulcer, applied antifungal powder
CODE STATUS: Full code
DVT prophylaxis: Subcu Lovenox
Diet: low K / diabetic diet
Total time spent to see the patient on the floor, examine the patient, review data and lab results, discuss treatment plan with patient, nursing staff around 39 minutes.
Physical Exam
General: No acute distress
HEENT: Normocephalic, Atraumatic, EOMI, MMM
Respiratory: Clear to Auscultation bilaterally
Cardiac: Normal S1/S2, Regular Rate and Rhythm
GI: Soft, Nontender, Nondistended, Normal Bowel Sounds
Extremities: No Clubbing, Cyanosis, or Edema
Neuro: Nonfocal/Grossly Intact
Anticipated Discharge: Within 24 hours
Subjective/Interval History
-
Date of Service: August 13, 2025
Patient reports 2 episodes of diarrhea yesterday, none today. Denies chest pain, shortness of breath. No fever, no vomiting.
Objective Data
-
Labs:
Laboratory Results
08/13/25 08/13/25
04:56 04:57
WBC 5.3
Hgb 11.0 L
Hct 32.5 L
Plt Count 212
Sodium 133 L
Potassium 4.6
Chloride 107
Carbon Dioxide 22
BUN 52 H
Creatinine 1.5 H
Glucose 117 H
Calcium 7.9 L
Vital Signs:
Vital Signs
Temp Pulse Resp BP Pulse Ox
98.4 F 77 20 141/86 97
08/13/25 07:00 08/13/25 07:00 08/13/25 07:00 08/13/25 07:00 08/13/25 07:00
I&O
08/12/25 08/13/25 08/14/25
06:59 06:59 06:59
Intake Total 2500 / 2600 1750 / 1750
Output Total 1900 / 1900 975 / 975
Balance 600 / 700 775 / 775
--- NOTE | 2025-08-13 09:44 | W.PN.NEPH.PH ---
Today's Communication / Plan
-
follow bmp
d/c further IVFs
smith is out
Assessment/Plan
-
64 years old with a history of krw-havuilj-qublbjlnl diabetes mellitus, CVA, osteoarthritis, sleep apnea, squamous cell carcinoma hypertension, hyperlipidemia, depression who came to the ER today with persistent nausea, vomiting, diarrhea for last 3
weeks after receiving Mounjaro injection.
Renal consult for acute on chronic kidney disease and severe hyperkalemia
Impression
Acute on chronic kidney disease baseline creatinine 1.4-1.5
Severe hyperkalemia
Nausea vomiting likely medication induced
Diabetes
CVA
Metabolic acidosis
plan
Creatinine now down to 1.5 and remains nonoliguric with Smith removed
Holding losartan, Aldactone, Jardiance and metformin.
Acidosis has improved to bicarbonate discontinued on normal saline
Can discontinue further IV fluids as patient now eating and drink
Follow BMP
Discussed with nursing

-
-
Date of Service: August 13, 2025
CC / HPI / ROS
-
Chief Complaint:
Acute kidney injury
History of Present Illness:
Acute on chronic kidney disease secondary to GI losses with GLP-1 initiation
Creatinine down to 1.5
Hemodynamically stable off antihypertensives
Review of Systems:
No chest pain or shortness of breath GI symptoms have subsided
Labs
-
Labs:
WBC 5.3 10^3/uL (4.8-10.8) 08/13/25 04:57
RBC 3.40 10^6/uL (4.70-6.10) L 08/13/25 04:57
Hgb 11.0 g/dL (13.0-18.0) L 08/13/25 04:57
Hct 32.5 % (39.0-52.0) L 08/13/25 04:57
Plt Count 212 10^3/uL (130-400) 08/13/25 04:57
Sodium 133 mmol/L (135-145) L 08/13/25 04:56
Potassium 4.6 mmol/L (3.5-5.1) 08/13/25 04:56
Chloride 107 mmol/L (98-107) 08/13/25 04:56
Carbon Dioxide 22 mmol/L (22-30) 08/13/25 04:56
BUN 52 mg/dl (9-20) H 08/13/25 04:56
Creatinine 1.5 mg/dL (0.7-1.3) H 08/13/25 04:56
eGFR 51.35 08/13/25 04:56
Glucose 117 mg/dl (70-99) H 08/13/25 04:56
Calcium 7.9 mg/dl (8.4-10.2) L 08/13/25 04:56
Bbh-T-Vgerbcecjve Pept 371 pg/ml 08/12/25 02:57
Albumin 3.3 g/dl (3.5-5.0) L 08/11/25 18:43
Physical Exam
-
Vital Signs:
Vital Signs
Temp Pulse Resp BP Pulse Ox
98.4 F 77 20 141/86 97
08/13/25 07:00 08/13/25 07:00 08/13/25 07:00 08/13/25 07:00 08/13/25 08:00
Cardiovascular:: Regular rate and rhythm
Respiratory:: Bilateral: CTA
Lung Excursion:: Normal
Abdomen:: Nontender and Soft
Bowel Sounds:: Normal
Extremity Edema:: None: Bilateral:
Smith Catheter: No
--- NOTE | 2025-08-13 09:53 | W.PN.NEPH.PH ---
Today's Communication / Plan
-
follow bmp
may d/c further IVFs
Assessment/Plan
-
64 years old with a history of vju-zstihsh-cykybvmzs diabetes mellitus, CVA, osteoarthritis, sleep apnea, squamous cell carcinoma hypertension, hyperlipidemia, depression who came to the ER today with persistent nausea, vomiting, diarrhea for last 3
weeks after receiving Mounjaro injection.
Renal consult for acute on chronic kidney disease and severe hyperkalemia
Impression
Acute on chronic kidney disease baseline creatinine 1.4-1.5
Severe hyperkalemia
Nausea vomiting likely medication induced
Diabetes
CVA
Metabolic acidosis
plan
Creatinine now down to 1.5 and remains nonoliguric with Castillo removed
Holding losartan, Aldactone, Jardiance and metformin.
Acidosis has improved to bicarbonate discontinued on normal saline
Can discontinue further IV fluids as patient now eating and drink
Follow BMP
Discussed with nursing

-
-
Date of Service: August 13, 2025
CC / HPI / ROS
-
Chief Complaint:
Acute kidney injury
History of Present Illness:
Acute on chronic kidney disease secondary to GI losses with GLP-1 initiation
Creatinine down to 1.5
Hemodynamically stable off antihypertensives
Review of Systems:
No chest pain or shortness of breath GI symptoms have subsided
Labs
-
Labs:
WBC 5.3 10^3/uL (4.8-10.8) 08/13/25 04:57
RBC 3.40 10^6/uL (4.70-6.10) L 08/13/25 04:57
Hgb 11.0 g/dL (13.0-18.0) L 08/13/25 04:57
Hct 32.5 % (39.0-52.0) L 08/13/25 04:57
Plt Count 212 10^3/uL (130-400) 08/13/25 04:57
Sodium 133 mmol/L (135-145) L 08/13/25 04:56
Potassium 4.6 mmol/L (3.5-5.1) 08/13/25 04:56
Chloride 107 mmol/L (98-107) 08/13/25 04:56
Carbon Dioxide 22 mmol/L (22-30) 08/13/25 04:56
BUN 52 mg/dl (9-20) H 08/13/25 04:56
Creatinine 1.5 mg/dL (0.7-1.3) H 08/13/25 04:56
eGFR 51.35 08/13/25 04:56
Glucose 117 mg/dl (70-99) H 08/13/25 04:56
Calcium 7.9 mg/dl (8.4-10.2) L 08/13/25 04:56
Txi-M-Gmefxozelff Pept 371 pg/ml 08/12/25 02:57
Albumin 3.3 g/dl (3.5-5.0) L 08/11/25 18:43
Physical Exam
-
Vital Signs:
Vital Signs
Temp Pulse Resp BP Pulse Ox
98.4 F 77 20 141/86 97
08/13/25 07:00 08/13/25 07:00 08/13/25 07:00 08/13/25 07:00 08/13/25 08:00
Cardiovascular:: Regular rate and rhythm
Respiratory:: Bilateral: CTA
Lung Excursion:: Normal
Abdomen:: Nontender and Soft
Bowel Sounds:: Normal
Extremity Edema:: None: Bilateral:
Castillo Catheter: No
[2025-08-13] MEDS: NSS IV (11:49)
[2025-08-13 12:08] LABS: Glucose - Point of Care 122 mg/dl (70-99)
--- NOTE | 2025-08-13 12:39 | CM ---
Call received from John' brother, Manny Hess. Update provided regarding probable transfer to [facility] tomorrow.
Manny was happy to hear that he is improving and agreeable to John going to SNF at [facility].
will continue to follow to coordinate transfer to [facility] when medically cleared.
[facility] Report: [phone]
[facility]
[2025-08-13 16:47] LABS: Glucose - Point of Care 123 mg/dl (70-99)
[2025-08-13] MEDS: LOVENOX 40 MG SC (17:11)
[2025-08-13] MEDS: ZOFRAN 4 MG IV (17:12)
[2025-08-13] MEDS: TYLENOL 650 MG PO (18:31)
[2025-08-13 20:59] LABS: Glucose - Point of Care 118 mg/dl (70-99)
[2025-08-13] MEDS: MELATONIN 3 MG PO (21:24)
[2025-08-13] MEDS: LIPITOR 40 MG PO (21:24)
[2025-08-14 03:00] VITALS: BP 117/85
[2025-08-14 06:31] LABS: Blood Urea Nitrogen 36 mg/dl (9-20); Calcium 8.3 mg/dl (8.4-10.2); Carbon Dioxide 23 mmol/L (22-30); Chloride 107 mmol/L (98-107); Estimated Creatinine Clearance 75 ml/min; Glucose 130 mg/dl (70-99); Magnesium 1.9 mg/dl (1.6-2.3); Potassium 4.9 mmol/L (3.5-5.1); Sodium 133 mmol/L (135-145); eGFR > 60.00
[2025-08-14] MEDS: PLAVIX 75 MG PO (07:09)
[2025-08-14] MEDS: CLARITIN 10 MG PO (07:09)
[2025-08-14] MEDS: DESENEX/MITRAZOL/ZEASORB 1 APPLIC TOPICAL (07:13)
[2025-08-14 07:34] VITALS: BP 157/90
[2025-08-14 07:42] LABS: Glucose - Point of Care 136 mg/dl (70-99)
[2025-08-14] MEDS: NOVOLOG FLEXPEN-LOW RESISTANCE SC ×3 (08:03→16:52)
--- NOTE | 2025-08-14 08:55 | W.PN.HOSP.TC ---
Today's Communication/Plan
-
see bold
Assessment / Plan
Assessment / Plan
HPI:
Patient is 64 years old with a history of bif-lxwkvft-hmwwskmoc diabetes mellitus, CVA, osteoarthritis, sleep apnea, squamous cell carcinoma hypertension, hyperlipidemia, depression who came to the ER today with persistent nausea, vomiting, diarrhea
for last 3 weeks after receiving Mounjaro injection.
Patient received a Mounjaro injection 3 weeks ago and afterward he was experience daily nausea, vomiting, diarrhea.
Patient denies any chest pain or shortness of breath, denies any abdominal pain, no recent fever or chills.
Upon presentation to the ER patient noted to have acute renal failure with significant acidosis, also potassium level was 8.1, repeat potassium 7.7.
Assessment/plan:
Acute renal failure on CKD stage 3a.
Severe hyperkalemia.
Acute metabolic acidosis.
Patient presented with 3 weeks history of nausea/vomiting/diarrhea after receiving Mounjaro.
Possible renal failure is prerenal azotemia secondary to volume depletion.
Appreciate pelletizer/nephrology input
Status post insulin/dextrose in the ER.
Started on bicarb drip.
Out of the ICU 08/12
Creatinine now back to baseline at 1.5
Nephrology recommends continuing to hold losartan, Aldactone upon discharge due to potassium of 4.9
Nephrology also recommends holding Jardiance upon discharge
Patient may resume metformin upon discharge
Patient counseled to permanently discontinue all pwzv-qlg-jndtthg NSAID medications
Medically stable for discharge to short-term rehab today, needs a repeat BMP on 08/20
If potassium is improved and creatinine still at baseline, he may resume spironolactone
Follow-up with PCP 1 week after he leaves rehab
Significant hyperkalemia.
Continue to hold losartan/potassium supplements/spironolactone
Continue to monitor potassium
Low potassium diet.
Hyponatremia.
Improving.
Continue to monitor
Hypomagnesemia.
Repleted and resolved
Acute metabolic encephalopathy.
Improving
Pancreatitis, elevated lipase.
No abdominal pain
No tenderness on physical
Concern of borderline prominent gallbladder seen on CT scan
Abdominal ultrasound is limited due to gallbladder being obscured by transverse colon
Again patient denies abdominal pain and there is no tenderness on physical exam.
History of hypertension.
Hold Losartan/spironolactone
Continue atenolol/hydralazine once BP improves.
History of diabetes mellitus
Hemoglobin A1c 5.8. Recommend permanently discontinue Mounjaro
Keep off of Jardiance upon discharge, resume metformin upon discharge
Insulin sliding scale
Diabetic diet
History of CVA.
Continue atorvastatin/Plavix
Hyperlipidemia.
Continue statin
Osteoarthritis.
Continue tramadol
Obesity due to excess calories
Affects all aspects of care
Wounds: Groin redness, no pressure ulcer, applied antifungal powder
CODE STATUS: Full code
DVT prophylaxis: Subcu Lovenox
Diet: low K / diabetic diet
Updated brother Manny on phone 08/14
Physical Exam
General: Obese, no acute distress
HEENT: Normocephalic, Atraumatic, EOMI, MMM
Respiratory: Clear to Auscultation bilaterally
Cardiac: Normal S1/S2, Regular Rate and Rhythm
GI: Soft, Nontender, Nondistended, Normal Bowel Sounds
Extremities: No Clubbing, Cyanosis, or Edema
Neuro: Nonfocal/Grossly Intact
Anticipated Discharge: Today
Subjective/Interval History
-
Date of Service: August 14, 2025
Diarrhea resolved. Denies chest pain, denies shortness of breath. No fever, no vomiting.
Objective Data
-
Labs:
Laboratory Results
08/14/25
05:30
WBC Pending
Hgb Pending
Hct Pending
Plt Count Pending
Sodium 133 L
Potassium 4.9
Chloride 107
Carbon Dioxide 23
BUN 36 H
Creatinine 1.2
Glucose 130 H
Calcium 8.3 L
Vital Signs:
Vital Signs
Temp Pulse Resp BP Pulse Ox
98.2 F 85 16 157/90 97
08/14/25 07:34 08/14/25 07:34 08/14/25 07:34 08/14/25 07:34 08/14/25 07:34
I&O
08/13/25 08/14/25 08/15/25
06:59 06:59 06:59
Intake Total 1750 / 1750 840 / 840
Output Total 975 / 975 750 / 750
Balance 775 / 775 90 / 90
--- NOTE | 2025-08-14 09:44 | W.PN.NEPH.PH ---
Today's Communication / Plan
-
Observe
Follow-up BMP in a.m.
Continue to hold ARB Aldactone Jardiance metformin NSAIDs
Assessment/Plan
-
64 years old with a history of ufn-ybuvyez-nvrexxton diabetes mellitus, CVA, osteoarthritis, sleep apnea, squamous cell carcinoma hypertension, hyperlipidemia, depression who came to the ER today with persistent nausea, vomiting, diarrhea for last 3
weeks after receiving Mounjaro injection.
Renal consult for acute on chronic kidney disease and severe hyperkalemia
Impression
Acute on chronic kidney disease baseline creatinine 1.4-1.5
Severe hyperkalemia
Nausea vomiting likely medication induced
Diabetes
CVA
Metabolic acidosis
plan
Creatinine now down to 1.2 (baseline )and remains nonoliguric with Castillo removed
Holding losartan, Aldactone, Jardiance and metformin.
We can add back the losartan once his blood pressure rebound
Acidosis has improved to bicarbonate discontinued on normal saline
I would not place him back on his Jardiance
Follow BMP
Discussed with nursing

-
-
Date of Service: August 14, 2025
CC / HPI / ROS
-
Chief Complaint:
Acute kidney injury
History of Present Illness:
Acute on chronic kidney disease secondary to GI losses with GLP-1 initiation
Creatinine down to 1.2
Hemodynamically stable off antihypertensives
Review of Systems:
No chest pain or shortness of breath GI symptoms have subsided
Labs
-
Labs:
Sodium 133 mmol/L (135-145) L 08/14/25 05:30
Potassium 4.9 mmol/L (3.5-5.1) 08/14/25 05:30
Chloride 107 mmol/L (98-107) 08/14/25 05:30
Carbon Dioxide 23 mmol/L (22-30) 08/14/25 05:30
BUN 36 mg/dl (9-20) H 08/14/25 05:30
Creatinine 1.2 mg/dL (0.7-1.3) 08/14/25 05:30
eGFR > 60.00 08/14/25 05:30
Glucose 130 mg/dl (70-99) H 08/14/25 05:30
Calcium 8.3 mg/dl (8.4-10.2) L 08/14/25 05:30
Dam-I-Hkbdjsblamf Pept 371 pg/ml 08/12/25 02:57
Albumin 3.3 g/dl (3.5-5.0) L 08/11/25 18:43
Physical Exam
-
Vital Signs:
Vital Signs
Temp Pulse Resp BP Pulse Ox
98.2 F 85 16 157/90 97
08/14/25 07:34 08/14/25 07:34 08/14/25 07:34 08/14/25 07:34 08/14/25 07:34
Cardiovascular:: Regular rate and rhythm
Respiratory:: Bilateral: CTA
Lung Excursion:: Normal
Abdomen:: Nontender and Soft
Bowel Sounds:: Normal
Extremity Edema:: None: Bilateral:
Castillo Catheter: No
[2025-08-14 10:24] LABS: Hematocrit 33.0 % (39.0-52.0); Hemoglobin 11.3 g/dL (13.0-18.0); Mean Corp Hgb Conc. 34.2 g/dL (33.0-37.0); Mean Corpuscular Volume 95.9 fL (80.0-94.0); Platelet Count 239 10^3/uL (130-400); Red Cell Dist. Width 11.9 % (11.5-14.5)
[2025-08-14 11:07] VITALS: BP 141/97
--- NOTE | 2025-08-14 11:16 | W.DCSUMMARY ---
Discharge Summary
Discharge Data
Date of Admission: 08/11/25
Date of Discharge: 08/14/25
-
Pending Results: No
Hospital Course
Discharge diagnosis:
Acute kidney failure superimposed on stage IIIa chronic kidney disease
Severe hyperkalemia
Non-anion gap metabolic acidosis
Hyponatremia
Hypomagnesemia
Acute metabolic encephalopathy
Possible pancreatitis with elevated lipase
History of essential hypertension
History of diabetes
History of stroke
Hyperlipidemia
Obesity due to excess calories
Consults: Nephrology, tray line supervisor
Hospital course:
63-year-old male with a history of stage III chronic kidney disease, diabetes, hypertension, and CVA who presented with a 3 week history of nausea, vomiting, and diarrhea after receiving Mounjaro injection. Patient was found to be in acute kidney
injury superimposed on stage III chronic kidney disease, and have severe hyperkalemia with non-anion gap metabolic acidosis. Patient's potassium was 8.1 upon admission, his creatinine was 3.7. He was seen in conjunction with the tray line supervisor and
stone driller in the ICU, and treated with a bicarb drip, insulin, dextrose. His losartan, Aldactone, Jardiance, and metformin were all held. Patient's potassium normalized, he was transferred out of the ICU.
Patient's baseline creatinine is 1.4�1.5. His creatinine improved and returned to baseline. Nephrology recommends permanent discontinuation of Mounjaro and Jardiance. Patient's hemoglobin A1c is 5.8.
Patient's potassium was 4.9 on the day of discharge. Nephrology recommends continuing to hold losartan and spironolactone upon discharge as these 2 medications can cause hyperkalemia. He can resume metformin upon discharge. He needs to have a
repeat BMP on 08/20/2025. If his potassium is improved and creatinine remains at his baseline, he can resume losartan. He needs to follow-up with his PCP 1 week after he leaves rehab.
Disposition: Short-term rehab
Discharge planning: Required 39 minutes
Discharge Plan
-
Patient Disposition: Detention/SNF
Discharge Diagnosis/Procedures: Severe life-threatening hyperkalemia, acute kidney injury superimposed on chronic kidney disease, vomiting and diarrhea
Condition: Good
Diet: Diabetic, Carb Controlled
Activity: As tolerated
Driving Restrictions: As prior to admission
Blood Work: BMP on 08/20/25
Activity Restrictions/Additional Instructions:
Please avoid all dzsj-lfp-ogyrvoz NSAID medications such as ibuprofen, naproxen, Aleve, Motrin, Advil.
These medications will worsen your kidney function.
Nephrology recommends you discontinue Mounjaro, Jardiance, losartan, and spironolactone.
Nephrology recommends repeat BMP on 08/20/2025.
If your potassium is better, and your kidney function is still at baseline, you can resume losartan�check with your doctor at that time.
Please follow-up with your family doctor 1 week after you leave rehab.
Referrals:
Tara French MD [Family Provider, Family Practice] - in one week
Prescriptions:
Continued
atorvastatin 40 mg Tablet
40 mg PO DAILY
metformin 500 mg Tablet
500 mg PO BID
sennosides [senna] 8.6 mg Tablet
17.2 mg PO DAILY PRN (Reason: constipation)
polyethylene glycol 3350 [Miralax] 17 gram Powder In Packet
17 g PO DAILY PRN (Reason: constipation)
Coricidin HBP Chest Kalpesh-Cough 10-200 mg Capsule
2 tab-cap PO Q6H PRN (Reason: cough)
ondansetron HCl 8 mg Tablet
8 mg PO Q8H PRN (Reason: nausea)
loperamide 2 mg Tablet
2 mg PO Q8H PRN (Reason: diarrhea)
melatonin 3 mg Tablet
3 mg PO HS
clopidogrel 75 mg Tablet
75 mg PO DAILY
Lotrimin AF 2 % Aerosol,[place]
1 spray TOPICAL DAILY PRN (Reason: to toes prn athlete's foot)
hydralazine 100 mg Tablet
100 mg PO BID
multivitamin with minerals Tablet
1 tab PO DAILY
fluticasone propionate 50 mcg/actuation [place],Suspension
2 spray INTRANASAL DAILY
atenolol 50 mg Tablet
50 mg PO DAILY
loratadine 10 mg Tablet
10 mg PO DAILY
ciclopirox 0.77 % Cream
1 applic TOPICAL BID PRN (Reason: toenail fungal infection)
insulin aspart U-100 [Novolog FlexPen U-100 Insulin] 100 unit/mL (3 mL) Insulin Pen
1 sliding scale dose SC DIRECTED
diclofenac sodium 1 % Gel
4 g TOPICAL Q12H PRN (Reason: mild back pain)
Circle 3 Ethyl Esters
1 g PO DAILY
trazodone 50 mg Tablet
50 mg PO HS PRN (Reason: sleep/insomnia)
tizanidine 4 mg Tablet
4 mg PO Q8H PRN (Reason: muscle spasms)
acetaminophen [Tylenol Extra Strength] 500 mg Tablet
1,000 mg PO Q8H
Changed
tramadol 50 mg Tablet
50 mg PO BIDPRN PRN (Reason: pain) Qty: 4 0RF
Discontinued
acetaminophen 325 mg Tablet
650 mg PO Q8H PRN (Reason: temp O>101.4)
losartan 100 mg Tablet
100 mg PO HS
naproxen sodium 220 mg Capsule
220 mg PO Q12H PRN (Reason: pain)
potassium chloride 20 mEq Tablet Extended Release
20 meq PO DAILY
Jardiance 25 mg Tablet
25 mg PO DAILY
spironolactone 50 mg Tablet
50 mg PO BID
Discharge Orders:
Discharge Patient (As Directed); Ordered 08/14/25
Ordered By: Alex Bailey
Discharge Date and Time
Print Language: KYRGYZ
[2025-08-14 11:50] LABS: Glucose - Point of Care 187 mg/dl (70-99)
--- NOTE | 2025-08-14 12:57 | CM ---
Addendum entered by Della Romero 08/14/25 14:26:
Pt's brother Varun was notified of discharge to [facility] today via ambulance at 7PM.
Original Note:
Pt is cleared for discharge to [facility] today. Ambulance transport requested.
[facility] Report: [phone]
[facility]
[2025-08-14 15:02] VITALS: BP 147/81
[2025-08-14 16:47] LABS: Glucose - Point of Care 133 mg/dl (70-99)
[2025-08-14] MEDS: LOVENOX SC (16:56)
== END 2025-08-14 19:45 | DRG 682 ==
LOC: 3 WEST ACU 11:07
PROVIDERS: Nurse Practitioner Family; Physician Assistant; ADMITTING PHYSICIAN General Practice; ATTENDING PHYSICIAN Family Medicine; CONSULT PHYSICIAN Internal Medicine; CONSULT PHYSICIAN Internal Medicine Nephrology; EMERGENCY PHYSICIAN Student in an Organized Health Care Education/Training Program; FAMILY PHYSICIAN Family Medicine
PROC: 5A09357 Assistance with Respiratory Ventilation, Less than 24 Consecutive Hours, Continuous Positive Airway Pressure (ICD-10-PCS; 2025-08-12)
DX: N17.9 Acute kidney failure, unspecified (principal); G93.41 Metabolic encephalopathy; K85.90 Acute pancreatitis without necrosis or infection, unspecified; E87.1 Hypo-osmolality and hyponatremia; E87.21 Acute metabolic acidosis; E87.5 Hyperkalemia; N18.31 Chronic kidney disease, stage 3a; E11.22 Type 2 diabetes mellitus with diabetic chronic kidney disease; E78.00 Pure hypercholesterolemia, unspecified; I12.9 Hypertensive chronic kidney disease with stage 1 through stage 4 chronic kidney disease, or unspecified chronic kidney disease; M16.10 Unilateral primary osteoarthritis, unspecified hip; J30.2 Other seasonal allergic rhinitis; G47.33 Obstructive sleep apnea (adult) (pediatric); B35.3 Tinea pedis; R11.2 Nausea with vomiting, unspecified; R19.7 Diarrhea, unspecified; T38.3X5A Adverse effect of insulin and oral hypoglycemic [antidiabetic] drugs, initial encounter; E66.09 Other obesity due to excess calories; Z68.35 Body mass index [BMI] 35.0-35.9, adult; E83.42 Hypomagnesemia; R79.89 Other specified abnormal findings of blood chemistry; E86.9 Volume depletion, unspecified; G47.00 Insomnia, unspecified; K80.20 Calculus of gallbladder without cholecystitis without obstruction; Z96.641 Presence of right artificial hip joint; Z79.02 Long term (current) use of antithrombotics/antiplatelets; Z79.84 Long term (current) use of oral hypoglycemic drugs; Z79.4 Long term (current) use of insulin; Z79.899 Other long term (current) drug therapy; Z86.73 Personal history of transient ischemic attack (TIA), and cerebral infarction without residual deficits
CPT/HCPCS: 71045; 74176; 76705; 80048; 80053; 81003; 81015; 82805; 82962; 83605; 83690; 83735; 83880; 84132; 84484; 85025; 85027; 87086; 93005; 94660; 96361; 96365; 96375; 97163; 97166; 99291

== ENCOUNTER → 2025-08-20 09:56 | Outpatient (REF) | payer MEDICARE, OTHER, SELFPAY ==
[2025-08-20 10:56] LABS: Hematocrit 32.6 % (39.0-52.0); Hemoglobin 10.5 g/dL (13.0-18.0); Mean Corp Hgb Conc. 32.2 g/dL (33.0-37.0); Mean Corpuscular Volume 97.9 fL (80.0-94.0); Platelet Count 268 10^3/uL (130-400); Red Cell Dist. Width 13.1 % (11.5-14.5)
[2025-08-20 11:15] LABS: ALT (SGPT) 37 U/L (0-50); AST (SGOT) 26 U/L (17-59); Albumin 2.9 g/dl (3.5-5.0); Alkaline Phosphatase 101 U/L (38-126); Blood Urea Nitrogen 18 mg/dl (9-20); Calcium 7.7 mg/dl (8.4-10.2); Carbon Dioxide 24 mmol/L (22-30); Chloride 107 mmol/L (98-107); Glucose 120 mg/dl (70-99); Magnesium 1.4 mg/dl (1.6-2.3); Potassium 3.9 mmol/L (3.5-5.1); Sodium 135 mmol/L (135-145); Total Protein 5.2 g/dl (6.3-8.2); eGFR > 60.00
== END ==
LOC: OLABWHC 09:56
PROVIDERS: ATTENDING PHYSICIAN Family Medicine
DX: G93.41 Metabolic encephalopathy (principal); N17.9 Acute kidney failure, unspecified
CPT/HCPCS: 36415; 80053; 83735; 85027

== ENCOUNTER → 2025-09-11 10:07 | Outpatient (REF) | payer MEDICARE, OTHER, SELFPAY ==
[2025-09-11 11:42] LABS: Blood Urea Nitrogen 14 mg/dl (9-20); Calcium 8.5 mg/dl (8.4-10.2); Carbon Dioxide 25 mmol/L (22-30); Chloride 108 mmol/L (98-107); Glucose 117 mg/dl (70-99); Potassium 4.1 mmol/L (3.5-5.1); Sodium 137 mmol/L (135-145); eGFR > 60.00
== END ==
LOC: OLABWPC 10:07
PROVIDERS: ATTENDING PHYSICIAN Family Medicine
DX: E87.5 Hyperkalemia (principal)
CPT/HCPCS: 36415; 80048

== ENCOUNTER → 2025-09-18 09:09 | Outpatient (REF) | payer MEDICARE, OTHER, SELFPAY ==
[2025-09-18 09:29] LABS: Hematocrit 32.6 % (39.0-52.0); Hemoglobin 10.8 g/dL (13.0-18.0); Mean Corp Hgb Conc. 33.1 g/dL (33.0-37.0); Mean Corpuscular Volume 98.5 fL (80.0-94.0); Nucleated Red Blood Cells % 0 % (-); Platelet Count 232 10^3/uL (130-400); Red Cell Dist. Width 13.8 % (11.5-14.5)
[2025-09-18 09:38] LABS: ALT (SGPT) 14 U/L (0-50); AST (SGOT) 17 U/L (17-59); Albumin 3.3 g/dl (3.5-5.0); Alkaline Phosphatase 85 U/L (38-126); Blood Urea Nitrogen 14 mg/dl (9-20); Calcium 8.7 mg/dl (8.4-10.2); Carbon Dioxide 25 mmol/L (22-30); Chloride 106 mmol/L (98-107); Glucose 101 mg/dl (70-99); HDL Cholesterol 29 mg/dl; LDL Cholesterol, Calculated 37 mg/dl; Potassium 4.1 mmol/L (3.5-5.1); Sodium 135 mmol/L (135-145); Total Protein 5.8 g/dl (6.3-8.2); Very Low Density Lipoprotein 25 mg/dl (0-30); eGFR > 60.00
[2025-09-18 11:13] LABS: Glycohemoglobin (HgbA1c) 5.6 % (4.0-5.9)
== END ==
LOC: OLABWPC 09:09
PROVIDERS: ATTENDING PHYSICIAN Family Medicine
DX: E11.22 Type 2 diabetes mellitus with diabetic chronic kidney disease (principal); I10 Essential (primary) hypertension
CPT/HCPCS: 36415; 80053; 80061; 83036; 84443; 85025

== ENCOUNTER → 2025-09-26 12:14 | Outpatient (REF) | payer MEDICARE, OTHER, SELFPAY ==
[2025-09-26 13:21] LABS: Hematocrit 36.2 % (39.0-52.0); Hemoglobin 11.4 g/dL (13.0-18.0); Mean Corp Hgb Conc. 31.5 g/dL (33.0-37.0); Mean Corpuscular Volume 104.3 fL (80.0-94.0); Nucleated Red Blood Cells % 0 % (-); Platelet Count 214 10^3/uL (130-400); Red Cell Dist. Width 14.1 % (11.5-14.5)
[2025-09-26 14:16] LABS: ALT (SGPT) 12 U/L (0-50); AST (SGOT) 16 U/L (17-59); Albumin 3.4 g/dl (3.5-5.0); Alkaline Phosphatase 88 U/L (38-126); Blood Urea Nitrogen 12 mg/dl (9-20); Calcium 8.6 mg/dl (8.4-10.2); Carbon Dioxide 26 mmol/L (22-30); Chloride 104 mmol/L (98-107); Glucose 93 mg/dl (70-99); HDL Cholesterol 30 mg/dl; LDL Cholesterol, Calculated 38 mg/dl; Potassium 4.0 mmol/L (3.5-5.1); Sodium 136 mmol/L (135-145); Total Protein 5.7 g/dl (6.3-8.2); Very Low Density Lipoprotein 22 mg/dl (0-30); eGFR > 60.00
== END ==
LOC: OLABWPC 12:14
PROVIDERS: ATTENDING PHYSICIAN Family Medicine
DX: I10 Essential (primary) hypertension (principal); E11.9 Type 2 diabetes mellitus without complications; E78.2 Mixed hyperlipidemia; I25.10 Atherosclerotic heart disease of native coronary artery without angina pectoris
CPT/HCPCS: 36415; 80053; 80061; 84443; 85025

== ENCOUNTER → 2025-10-11 11:11 | Outpatient (REF) | payer MEDICARE, OTHER, SELFPAY ==
[2025-10-11 11:25] LABS: Hematocrit 34.6 % (39.0-52.0); Hemoglobin 11.6 g/dL (13.0-18.0); Mean Corp Hgb Conc. 33.5 g/dL (33.0-37.0); Mean Corpuscular Volume 99.7 fL (80.0-94.0); Nucleated Red Blood Cells % 0 % (-); Platelet Count 201 10^3/uL (130-400); Red Cell Dist. Width 13.2 % (11.5-14.5)
[2025-10-11 13:11] LABS: PSA, Total - Screen 0.11 ng/ml (0.0-4.0)
[2025-10-11 13:59] LABS: ALT (SGPT) 15 U/L (0-50); AST (SGOT) 19 U/L (17-59); Albumin 3.4 g/dl (3.5-5.0); Alkaline Phosphatase 65 U/L (38-126); Blood Urea Nitrogen 17 mg/dl (9-20); Calcium 8.6 mg/dl (8.4-10.2); Carbon Dioxide 27 mmol/L (22-30); Chloride 105 mmol/L (98-107); Glucose 107 mg/dl (70-99); HDL Cholesterol 32 mg/dl; LDL Cholesterol, Calculated 30 mg/dl; Potassium 4.0 mmol/L (3.5-5.1); Sodium 134 mmol/L (135-145); Total Protein 5.9 g/dl (6.3-8.2); Very Low Density Lipoprotein 23 mg/dl (0-30); eGFR > 60.00
== END ==
LOC: OLABWPC 11:11
PROVIDERS: ATTENDING PHYSICIAN Family Medicine
DX: E11.22 Type 2 diabetes mellitus with diabetic chronic kidney disease (principal); N18.31 Chronic kidney disease, stage 3a; E78.2 Mixed hyperlipidemia; Z12.5 Encounter for screening for malignant neoplasm of prostate
CPT/HCPCS: 36415; 80053; 80061; 85025; G0103